=== PATIENT | female | born 1995 | race Caucasian/White ===

== ENCOUNTER → 2019-09-10 11:58 | Outpatient (CLI) | payer OTHER, SELFPAY ==
[2019-09-10 12:21] LABS: Appearance Urine UA CLEAR; Bilirubin Urine UA NEGATIVE (NEGATIVE); Color Urine UA YELLOW; Glucose Urine UA NEGATIVE (Negative); Ketones Urine UA NEGATIVE (NEGATIVE); Leukocyte Esterase Urine UA NEGATIVE (NEGATIVE); Nitrite Urine UA NEGATIVE (Negative); Occult Blood Urine UA NEGATIVE (Negative); Protein Urine UA NEGATIVE (Negative); Urobilinogen Urine UA 0.2 E.U./dL (0.2)
[2019-09-10 12:21] LABS: Add Manual Diff / Slide Review NO; Basophils Absolute Auto 0 /uL (0-100); Basophils Percent Auto 0.5 % (0-2); Eosinophils Absolute Auto 200 /uL (0-450); Hematocrit 42.4 % (36-46); Hemoglobin 14.7 g/dL (12.0-16.0); Lymphocytes Absolute Auto 1800 /uL (1100-4500); Lymphocytes Percent Auto 22.2 % (25-40); Mean Corpuscular HGB Conc 34.7 % (30-36); Mean Corpuscular Hemoglobin 29.8 PG (26-34); Mean Corpuscular Volume 85.7 fL (80-100); Monocytes Absolute Auto 500 /uL (0-900); Monocytes Percent Auto 6.1 % (3-14); Neutrophils Absolute Auto 5500 /uL (1500-7000); Neutrophils Percent Auto 69.2 % (50-75); Platelet Count 293 X10^3/uL (150-400); Red Blood Cell Count 4.94 X10^6/uL (4.0-5.2); Red Cell Distribution Width 12.8 % (11.6-14.8)
[2019-09-10 15:54] LABS: Hepatitis B Surface Antigen NEGATIVE s/c (NEGATIVE); Rubella Antibody IgG 63.6 IU/mL (>15)
[2019-09-10 16:14] LABS: HIV 1 & 2 Ab/Ag 4th Gen Combo NEGATIVE (NEGATIVE); Hep C Virus Ab w/Reflex Quant NEGATIVE s/c (NEGATIVE)
[2019-09-12 20:56] LABS: RPR Screen Nonreactive (Nonreactive)
== END ==
PROVIDERS: Visit Provider Obstetrics & Gynecology
DX: Z34.01 Encounter for supervision of normal first pregnancy, first trimester (principal)
CPT/HCPCS: 36415; 80055; 81003; 86787; 86803; 86850; 86900; 86901; 87086; 87389

== ENCOUNTER → 2019-11-12 09:03 | Outpatient (CLI) | payer OTHER, SELFPAY ==
[2019-11-17 10:08] LABS: AFP, Serum 36.3 ng/mL; Calc Gestational Age 20.1; Est Date Determined by US; Maternal Weight 200 lbs; Mother Ethnic Origin CAUCASIAN; Number of Fetuses 1; Prev Pregnancies Down Syndrome N
== END ==
PROVIDERS: Visit Provider Obstetrics & Gynecology
DX: Z34.92 Encounter for supervision of normal pregnancy, unspecified, second trimester (principal); Z3A.15 15 weeks gestation of pregnancy
CPT/HCPCS: 36415; 82105

== ENCOUNTER → 2019-11-19 07:08 | Outpatient (CLI) | payer OTHER, SELFPAY ==
--- NOTE | 2019-11-19 07:09 | DI.US.S_ITS ---
PROCEDURE: US OB >= 14 WEEKS FETUS INDICATIONS: ANATOMY OUTSIDE/PRIOR DATING DATA: Last menstrual period (LMP): 06/23/19. LMP-based estimated date of delivery (CORAL): 03/28/20. First dating scan (date and location): 11/12/19. Estimated date of delivery (CORAL) from first dating scan: 03/31/20. TECHNIQUE: Real-time scanning was performed of the fetus, with image documentation and biometric measurements. Endovaginal scanning: Not needed for this study COMPARISON: [facility], , OB >= 14 WEEKS FETUS, 11/12/2019, 8:50. FINDINGS: General: A single living intrauterine gestation is present. Presentation: Vertex. Placenta: Placental position is anterior, without previa. Amniotic fluid index: 14.9 cm, normal range is 5-24 cm. heart rate: 139 beats per minute. Maternal cervical canal: 4.5 m long. Normal lower limit is 2.5 cm. biometrics: Biparietal diameter: 5.1 cm, 21 weeks 4 days Head circumference: 18.1 cm, 20 weeks 3 days Abdominal circumference: 16.1 cm, 21 weeks 1 day Femur length: 3.4 cm, 20 weeks 6 days Estimated gestational age from initial scan: 21 weeks 0 days. Composite gestational age from present scan: 21 weeks 0 days Estimated weight and percentile: 391 grams, 44th percentile Measurement variability for biometric dating: +/- 7 days from 14 weeks to 15 weeks 6 days gestation, +/- 10 days from 16 weeks to 21 weeks 6 days gestation, +/- 2 weeks from 22 weeks to 27 weeks 6 days gestation, +/- 3 weeks for 28 weeks gestation or later. weight reference: 4500 g or EFW >90/95% is considered macrosomia or large for gestational age. EFW <10% is small for gestational age. EFW 5% or less is considered intra-uterine growth restriction. Anatomic survey: Neuro: Ventricles are non-dilated at less than 10 mm. Cisterna magna is normal at 3-11 mm. Cerebellum is normal in size and morphology. Nuchal skin fold: Normal at less than 6 mm between 14-21 weeks gestational age. Face: Nose and lips, facial profile are normal. Spine: No evidence for spina bifida. Heart: 4-chambered heart is present, with normal ventricular outflow tracts. Diaphragm: Diaphragm is intact. Stomach: Left-sided stomach is present. Kidneys: No hydronephrosis. Normal is less than 5 mm in 2nd trimester, less than 7 mm in 3rd trimester. Cord: 3-vessel cord has orthotopic insertion. Bladder: Normal in size. Extremities: All 4 extremities identified. IMPRESSION: Appropriate growth, no anatomic abnormality. Dictated by: Armando Llamas M.D. on 11/19/2019 at 11:18 Approved by: Armando Llamas M.D. on 11/20/2019 at 12:13
== END ==
PROVIDERS: PCP Obstetrics & Gynecology; Visit Provider Obstetrics & Gynecology
DX: Z34.82 Encounter for supervision of other normal pregnancy, second trimester (principal); Z3A.20 20 weeks gestation of pregnancy
CPT/HCPCS: 76811

== ENCOUNTER → 2019-12-17 08:20 | Outpatient (CLI) | payer OTHER, SELFPAY ==
[2019-12-17 09:55] LABS: Add Manual Diff / Slide Review NO; Basophils Absolute Auto 0 /uL (0-100); Basophils Percent Auto 0.2 % (0-2); Eosinophils Absolute Auto 100 /uL (0-450); Eosinophils Percent Auto 1.5 % (2-4); Hematocrit 38.9 % (36-46); Hemoglobin 13.5 g/dL (12.0-16.0); Lymphocytes Absolute Auto 1600 /uL (1100-4500); Lymphocytes Percent Auto 15.9 % (25-40); Mean Corpuscular HGB Conc 34.6 % (30-36); Mean Corpuscular Hemoglobin 29.6 PG (26-34); Mean Corpuscular Volume 85.6 fL (80-100); Monocytes Absolute Auto 600 /uL (0-900); Monocytes Percent Auto 5.9 % (3-14); Neutrophils Absolute Auto 7500 /uL (1500-7000); Neutrophils Percent Auto 76.5 % (50-75); Platelet Count 283 X10^3/uL (150-400); Red Blood Cell Count 4.54 X10^6/uL (4.0-5.2); Red Cell Distribution Width 13.4 % (11.6-14.8); White Blood Cell Count 9.8 X10^3/uL (4.5-11.0)
[2019-12-17 10:11] LABS: Aspartate Aminotransferase 22 IU/L (14-36); Blood Urea Nitrogen 7 mg/dL (7-17); Estimated Glomerular Filt Rate > 60.0 mL/min (>60); Uric Acid 3.8 mg/dL (2.5-6.2)
[2019-12-17 10:22] LABS: Protein (Total) Urine Random 15 mg/dL (0-12); Protein Creatinine Ratio Urine 0.21 GRAM/24H
== END ==
PROVIDERS: PCP Obstetrics & Gynecology; Referring Provider Obstetrics & Gynecology; Visit Provider Obstetrics & Gynecology
DX: O13.9 Gestational [pregnancy-induced] hypertension without significant proteinuria, unspecified trimester (principal)
CPT/HCPCS: 36415; 82570; 84156; 84450; 84550; 85025

== ENCOUNTER → 2020-01-01 11:04 | Outpatient (CLI) | payer OTHER, SELFPAY ==
[2020-01-01 12:43] LABS: Hematocrit 37.6 % (36-46); Hemoglobin 13.1 g/dL (12.0-16.0)
[2020-01-01 13:08] LABS: GTT (PREG) 1 Hour PP 50gm Dose 139 mg/dL (76-139)
== END ==
PROVIDERS: PCP Obstetrics & Gynecology; Referring Provider Obstetrics & Gynecology; Visit Provider Obstetrics & Gynecology
DX: Z34.82 Encounter for supervision of other normal pregnancy, second trimester (principal); Z3A.25 25 weeks gestation of pregnancy
CPT/HCPCS: 36415; 82950; 85014; 85018

== ENCOUNTER → 2020-01-07 15:23 | Outpatient (CLI) | payer OTHER, SELFPAY ==
[2020-01-07 17:51] LABS: Aspartate Aminotransferase 25 IU/L (14-36); BUN Creatinine Ratio 12.5 (6-22); Blood Urea Nitrogen 8 mg/dL (7-17); Estimated Glomerular Filt Rate > 60.0 mL/min (>60)
[2020-01-07 18:17] LABS: Creatinine Urine Random 16.9 mg/dL; Protein (Total) Urine Random 13 mg/dL (0-12); Protein Creatinine Ratio Urine 0.76 GRAM/24H
[2020-01-07 18:48] LABS: Add Manual Diff / Slide Review NO; Basophils Absolute Auto 0 /uL (0-100); Basophils Percent Auto 0.3 % (0-2); Eosinophils Absolute Auto 200 /uL (0-450); Eosinophils Percent Auto 1.6 % (2-4); Hematocrit 36.4 % (36-46); Hemoglobin 12.6 g/dL (12.0-16.0); Lymphocytes Absolute Auto 1500 /uL (1100-4500); Lymphocytes Percent Auto 15.7 % (25-40); Mean Corpuscular HGB Conc 34.5 % (30-36); Mean Corpuscular Hemoglobin 29.6 PG (26-34); Mean Corpuscular Volume 85.8 fL (80-100); Monocytes Absolute Auto 500 /uL (0-900); Monocytes Percent Auto 5.5 % (3-14); Neutrophils Absolute Auto 7400 /uL (1500-7000); Neutrophils Percent Auto 76.9 % (50-75); Platelet Count 300 X10^3/uL (150-400); Red Blood Cell Count 4.24 X10^6/uL (4.0-5.2); Red Cell Distribution Width 13.2 % (11.6-14.8); White Blood Cell Count 9.6 X10^3/uL (4.5-11.0)
== END ==
PROVIDERS: PCP Obstetrics & Gynecology; Referring Provider Obstetrics & Gynecology; Visit Provider Obstetrics & Gynecology
DX: O13.9 Gestational [pregnancy-induced] hypertension without significant proteinuria, unspecified trimester (principal)
CPT/HCPCS: 36415; 82570; 84156; 84450; 84550; 85025

== ENCOUNTER 2020-01-08 23:52 | Outpatient (CLI) | payer OTHER, SELFPAY ==
[2020-01-09 00:12] LABS: RBC Urine None Seen (0-5/HPF)
[2020-01-09 00:20] LABS: Appearance Urine UA CLEAR; Bilirubin Urine UA NEGATIVE (NEGATIVE); Glucose Urine UA NEGATIVE (Negative); Ketones Urine UA NEGATIVE (NEGATIVE); Leukocyte Esterase Urine UA TRACE (NEGATIVE); Nitrite Urine UA NEGATIVE (Negative); Occult Blood Urine UA NEGATIVE (Negative); Protein Urine UA NEGATIVE (Negative); Specific Gravity Urine UA <=1.005 (1.000-1.035); Urobilinogen Urine UA 0.2 E.U./dL (0.2)
[2020-01-09 00:21] LABS: Color Urine UA Straw
[2020-01-09 00:33] LABS: Bacteria Urine Few (2-10); Culture Indicated Urine Specimen Cultured; Squamous Epithelial Cell Urine 1-5 /HPF (0-5/HPF); WBC Urine 0-1/HPF (0-5/HPF)
[2020-01-09 00:34] LABS: Creatinine Urine Random 13.6 mg/dL; Protein (Total) Urine Random 15 mg/dL (0-12)
--- NOTE | 2020-01-09 00:58 | PM.OBTRLD ---
Visit Information Visit Information Date of evaluation: 01/09/20 Primary OB Provider: Mily Monsivais On-call OB Provider: Patricia Dejesus Reason for Evaluation: Yes non-stress test non-stress test reason: hypertension/pre-eclampsia Comments/Additional reasons for admission: Patient call the after hours line concerned about elevated blood pressures in the setting of known gestational hypertension. Blood pressure was in the 140s over 80s at home. She stated that she had preeclampsia labs done on 01/07/20 but had not yet heard the results. She was concerned because she felt a bit lightheaded and had some swelling during the day. Denied severe headache or abdominal pain. Also denied contractions, vaginal bleeding or decreased movement. Lab results were reviewed with the patient over the phone showing an elevated microalbumin creatinine ratio however remaining labs were normal. Vital Signs Vital Signs: Temperature 36.4? blood pressure 137/92 heart rate 72, repeat 120/71 heart rate 62 PFSH Medical History Pneumonia (Acute) Surgical History Anesthesia (Resolved) Hx of tonsillectomy (Acute) [place] teeth extracted (Acute) Family History Grandmother Breast cancer Leukemia Depression Diabetes mellitus Social History marital status: household members: spouse pets and animals: Yes (dogs x 2) education level: college (some college) occupational status: employed (Para-Educator) current occupational exposures/hazards: No special [place] needs: No travel history: recent ([email or web address] May 28 2019) Smoking Status: Never smoker second hand exposure: No alcohol intake: former (occasional pre-) substance use type: does not use during the past year weight has: remained stable Type(s) of exercise: walking and other (Hiking ) Objective Labs Labs: Laboratory Results - last 24 hr 01/09/20 01/09/20 00:00 00:00 Urine Color Straw Urine Appearance Clear Urine pH 7.0 Ur Specific [place] <=1.005 Urine Protein Negative Urine Glucose (UA) Negative Urine Ketones Negative Urine Occult Blood Negative Urine Nitrate Negative Urine Bilirubin Negative Urine Urobilinogen 0.2 Ur Leukocyte Esterase Trace H Urine RBC None seen Urine WBC 0-1/hpf Ur Squamous Epith Cells 1-5 /hpf Urine Bacteria Few (2-10) H Ur Culture Indicated? Specimen cultured U Random Total Protein 15 H Urine Creatinine 13.6 Protein/Creatinin Ratio 1.10 Evaluation Evaluation Baseline heart rate: 120 Variability: Moderate (11-25) monitor accelerations: Present monitor decelerations: Absent Category of Tracing: I Laboratory results: Laboratory Tests 01/09/20 01/09/20 00:00 00:00 Urine Color Straw Urine Appearance Clear Urine pH 7.0 Ur Specific [place] <=1.005 Urine Protein Negative Urine Glucose (UA) Negative Urine Ketones Negative Urine Occult Blood Negative Urine Nitrate Negative Urine Bilirubin Negative Urine Urobilinogen 0.2 Ur Leukocyte Esterase Trace H Urine RBC None seen Urine WBC 0-1/hpf Ur Squamous Epith Cells 1-5 /hpf Urine Bacteria Few (2-10) H Ur Culture Indicated? Specimen cultured U Random Total Protein 15 H Urine Creatinine 13.6 Protein/Creatinin Ratio 1.10 Diagnosis, Plan/Disposition Final Diagnosis (1) 28 weeks gestation of : Current Visit: Yes Status: Acute (2) Pre-eclampsia: Current Visit: Yes Status: Acute Plan/Disposition Plan: Patient is a 24-year-old at 28 weeks gestation with known gestational hypertension. Labs done 01/07/20 were significant for an elevated protein creatinine ratio of 0.7, other labs were normal. Patient was asked to come to the center for further evaluation given technically new diagnosis of pre-eclampsia with new symptoms (lightheadedness, edema). In the center initial BP was 137/92 and repeat 120/71. Patient denied HERNANDEZ, vision changes, abdominal pain, leaking of fluid, vaginal bleeding or decreased movement. No edema noted by RN. Urine protein/creatinine was repeated and returned at 1.1. Given reassuring blood pressures and lack of severe symptoms, blood work was not repeated. Patient will follow up with Dr. Monsivais as planned. She was advised to continued checking home blood pressures and counseled on severe range pressures as well as severe symptoms. Return to triage as needed, otherwise follow up in clinic. OB Disposition: home
== END 2020-01-09 01:05 | disposition home or self-care (01) ==
LOC: LABOR 23:54 → OB 01-12 11:50
PROVIDERS: PCP Obstetrics & Gynecology; Referring Provider Family Medicine; Visit Provider Family Medicine
DX: O14.93 Unspecified pre-eclampsia, third trimester (principal); Z3A.28 28 weeks gestation of pregnancy
CPT/HCPCS: 59025; 59050; 81001; 82570; 84156; 87077; 87086; G0378; G0379

== ENCOUNTER 2020-01-10 09:52 | Outpatient (CLI) | payer OTHER, SELFPAY ==
--- NOTE | 2020-01-10 10:11 | DI.US.S_ITS ---
PROCEDURE: US OB BIOPHYSICAL PROFILE INDICATIONS: HTN OUTSIDE/PRIOR DATING DATA: Last menstrual period (LMP): 06/23/19. LMP-based estimated date of delivery (CORAL): 03/28/20. First dating scan (date and location): 11/12/19. Estimated date of delivery (CORAL) from first dating scan: 03/31/20. TECHNIQUE: Real-time scanning was performed of the fetus for biophysical profile, with image documentation. Color and pulse Doppler interrogation was also performed of the umbilical artery near its insertion into the placenta. COMPARISON: [facility], , OB >= 14 WEEKS FETUS, 12/24/2019, 8:15. [facility], OB >= 14 WEEKS FETUS, 11/19/2019, 7:28. [facility], OB >= 14 WEEKS FETUS, 11/12/2019, 8:50. [facility], , OB <= 14 WEEKS FETUS, 09/10/2019, 11:23. FINDINGS: General: A single live intrauterine gestation is present. Presentation: Variable. Placenta: Placental position is right fundal, without previa. Amniotic fluid index: 13.1 cm, normal range is 5-24 cm. heart rate: 131 beats per minute. Maternal cervical canal: 4.5 cm long. Normal lower limit is 2.5 cm. Estimated gestational age from initial scan: 28 weeks 3 days. Biophysical profile: Tone: 2 points. Movement: 2 points. Respiration: 2 points. Largest pocket of fluid: 2 points. Umbilical artery Doppler: 3.7, within normal limits. IMPRESSION: Normal biophysical profile, 8/8 points. Dictated by: Grady Alegre M.D. on 01/10/2020 at 10:22 Approved by: Grady Alegre M.D. on 01/10/2020 at 10:24
--- NOTE | 2020-01-10 12:44 | PM.OBTRLD ---
Visit Information Visit Information Date of evaluation: 01/10/20 Primary OB Provider: Mily Monsivais On-call OB Provider: Linda Chavez Reason for Evaluation: Yes non-stress test non-stress test reason: hypertension/pre-eclampsia Vital Signs Vital Signs: Blood pressure 133/83, pulse of 81, temperature 36.2? [facility] Social History marital status: household members: spouse pets and animals: Yes (dogs x 2) education level: college (some college) occupational status: employed (Para-Educator) current occupational exposures/hazards: No special [place] needs: No travel history: recent ([place] for [employer] May 28 2019) Smoking Status: Never smoker second hand exposure: No alcohol intake: former (occasional pre-) substance use type: does not use during the past year weight has: remained stable Type(s) of exercise: walking and other (Hiking ) Objective Imaging US - abdomen: Radiologist's impression: Biophysical profile 06/05 Evaluation Evaluation Baseline heart rate: 125 Variability: Moderate (11-25) monitor accelerations: Present monitor decelerations: Absent Contraction Frequency (minutes): 0 Category of Tracing: I Diagnosis, Plan/Disposition Final Diagnosis (1) 28 weeks gestation of : Current Visit: Yes Status: Acute (2) Hypertension affecting in third trimester: Current Visit: Yes Status: Acute Plan/Disposition Plan: Patient is being monitored for hypertension in . Biophysical profile and NST are normal. Blood pressure is not significantly elevated from baseline. Follow-up but normal OB appointment. OB Disposition: home
[2020-01-12 18:48] LABS: Protein (Total) Urine Random 13 mg/dL (0-12)
[2020-01-12 18:53] LABS: Collection Time Urine 24 Hours; Total Protein 24 Hour Urine 403 mg/day (42-225); Total Volume Urine 3100 mL
== END 2020-01-10 11:15 | disposition home or self-care (01) ==
LOC: OB 01-12 11:52
PROVIDERS: PCP Obstetrics & Gynecology; Referring Provider Obstetrics & Gynecology; Visit Provider Obstetrics & Gynecology
DX: O14.93 Unspecified pre-eclampsia, third trimester (principal); Z3A.28 28 weeks gestation of pregnancy
CPT/HCPCS: 59025; 76819; 84156; G0378; G0379

== ENCOUNTER → 2020-01-15 10:39 | Outpatient (CLI) | payer OTHER, SELFPAY ==
[2020-01-15 10:58] LABS: Hematocrit 36.8 % (36-46); Hemoglobin 12.6 g/dL (12.0-16.0); Mean Corpuscular HGB Conc 34.2 % (30-36); Mean Corpuscular Hemoglobin 29.4 PG (26-34); Mean Corpuscular Volume 85.9 fL (80-100); Platelet Count 305 X10^3/uL (150-400); Red Blood Cell Count 4.28 X10^6/uL (4.0-5.2); White Blood Cell Count 10.5 X10^3/uL (4.5-11.0)
[2020-01-15 11:08] LABS: Carbon Dioxide 26 mmol/L (22-32)
[2020-01-15 11:15] LABS: Alanine Aminotransferase 13 IU/L (<35); Albumin 3.9 g/dL (3.5-5.0); Albumin Globulin Ratio 1.1 (1.0-2.8); Alkaline Phosphatase 91 U/L (38-126); Aspartate Aminotransferase 24 IU/L (14-36); BUN Creatinine Ratio 13.2 (6-22); Bilirubin Total 0.3 mg/dL (0.2-1.3); Blood Urea Nitrogen 9 mg/dL (7-17); Calcium 9.5 mg/dL (8.4-10.2); Chloride 105 mmol/L (98-107); Estimated Glomerular Filt Rate > 60.0 mL/min (>60); Globulin 3.4 g/dL (1.7-4.1); Glucose 86 mg/dL (70-100); HEMOLYSIS < 15 (0-50); Potassium 4.1 mmol/L (3.4-5.1); Sodium 134 mmol/L (137-145); Total Protein 7.3 g/dL (6.3-8.2); Uric Acid 4.2 mg/dL (2.5-6.2)
== END ==
PROVIDERS: PCP Obstetrics & Gynecology; Referring Provider Obstetrics & Gynecology; Visit Provider Obstetrics & Gynecology
DX: O14.90 Unspecified pre-eclampsia, unspecified trimester (principal)
CPT/HCPCS: 36415; 80053; 84550; 85027

== ENCOUNTER 2020-01-20 09:17 | Outpatient (CLI) | payer OTHER, SELFPAY ==
--- NOTE | 2020-01-20 10:11 | P.TNLD_ITS ---
Visit Information Visit Information Date of evaluation: 01/20/20 Primary OB Provider: Mily Monsivais Reason for Evaluation: Yes non-stress test Comments/Additional reasons for admission: NST for preeclampsia without severe features Vital Signs Vital Signs: 131/86, HR 76, T 36.8C PFSH Medical History Pneumonia (Acute) Surgical History Anesthesia (Resolved) Hx of tonsillectomy (Acute) [place] teeth extracted (Acute) Family History Grandmother Breast cancer Leukemia Depression Diabetes mellitus Social History marital status: household members: spouse pets and animals: Yes (dogs x 2) education level: college occupational status: employed current occupational exposures/hazards: No special [place] needs: No travel history: recent Smoking Status: Never smoker second hand exposure: No alcohol intake: former substance use type: does not use during the past year weight has: remained stable Type(s) of exercise: walking and other Evaluation Evaluation Baseline heart rate: 125 Variability: Moderate (11-25) monitor accelerations: Present monitor decelerations: Absent Category of Tracing: I Diagnosis, Plan/Disposition Plan/Disposition Plan: Home with routine precautions and follow up in 3 days. OB Disposition: home
== END 2020-01-20 10:20 | disposition home or self-care (01) ==
LOC: OB 01-22 08:58
PROVIDERS: Referring Provider Obstetrics & Gynecology; Visit Provider Obstetrics & Gynecology
DX: O14.03 Mild to moderate pre-eclampsia, third trimester (principal); Z3A.30 30 weeks gestation of pregnancy
CPT/HCPCS: 59025; G0378; G0379

== ENCOUNTER 2020-01-23 08:52 | Outpatient (CLI) | payer OTHER, SELFPAY ==
[2020-01-23 09:35] LABS: Add Manual Diff / Slide Review NO; Basophils Absolute Auto 100 /uL (0-100); Basophils Percent Auto 0.6 % (0-2); Eosinophils Absolute Auto 200 /uL (0-450); Hematocrit 35.7 % (36-46); Hemoglobin 12.3 g/dL (12.0-16.0); Lymphocytes Absolute Auto 1300 /uL (1100-4500); Lymphocytes Percent Auto 12.9 % (25-40); Mean Corpuscular HGB Conc 34.4 % (30-36); Mean Corpuscular Hemoglobin 29.2 PG (26-34); Mean Corpuscular Volume 84.9 fL (80-100); Monocytes Absolute Auto 600 /uL (0-900); Monocytes Percent Auto 5.8 % (3-14); Neutrophils Absolute Auto 7700 /uL (1500-7000); Neutrophils Percent Auto 78.7 % (50-75); Platelet Count 271 X10^3/uL (150-400); Red Cell Distribution Width 13.1 % (11.6-14.8); White Blood Cell Count 9.8 X10^3/uL (4.5-11.0)
[2020-01-23 09:51] LABS: Aspartate Aminotransferase 20 IU/L (14-36); BUN Creatinine Ratio 10.5 (6-22); Blood Urea Nitrogen 6 mg/dL (7-17); Estimated Glomerular Filt Rate > 60.0 mL/min (>60); Uric Acid 4.4 mg/dL (2.5-6.2)
--- NOTE | 2020-01-23 11:54 | PM.OBTRLD ---
Visit Information Visit Information Date of evaluation: 01/23/20 Primary OB Provider: Mily Monsivais Reason for Evaluation: Yes non-stress test Comments/Additional reasons for admission: This patient is a 24yo @30+5 with preeclampsia without severe features, presenting for scheduled NST/BPP. The patient reports feeling well with normal BPs on monitoring at home (120s-130s systolic,) -VB, -LOF, -ctx, no HERNANDEZ, no visual changes, no swelling, and no other complaints obstetrical or otherwise. [facility] Medical History Pneumonia (Acute) Surgical History Anesthesia (Resolved) Hx of tonsillectomy (Acute) [place] teeth extracted (Acute) Family History Grandmother Breast cancer Leukemia Depression Diabetes mellitus Social History marital status: household members: spouse pets and animals: Yes (dogs x 2) education level: college occupational status: employed current occupational exposures/hazards: No special [place] needs: No travel history: recent Smoking Status: Never smoker second hand exposure: No alcohol intake: former substance use type: does not use during the past year weight has: remained stable Type(s) of exercise: walking and other Review of Systems Constitutional Constitutional: Reports system reviewed and no additional complaints, except as documented Cardiovascular Cardiovascular: Reports system reviewed; no additional complaints, except as documented Respiratory Respiratory: Reports system reviewed and no additional complaints, except as documented Gastrointestinal Gastrointestinal: Reports system reviewed and no additional complaints, except as documented Genitourinary Genitourinary: Reports system reviewed and no additional complaints, except as documented Exam Vital Signs (past 8 hours): 115/67, HR 74, T 37.2C GI Palpation: soft and No tender Objective Labs Result Diagrams: 01/23/20 09:22 01/23/20 09:22 Labs: Laboratory Results - last 24 hr 01/23/20 01/23/20 09:22 09:22 WBC 9.8 RBC 4.20 Hgb 12.3 Hct 35.7 L MCV 84.9 MCH 29.2 MCHC 34.4 RDW 13.1 Plt Count 271 Neut % (Auto) 78.7 H Lymph % (Auto) 12.9 L [place] % (Auto) 5.8 Eos % (Auto) 2.0 Baso % (Auto) 0.6 Neut # (Auto) 7700 H Lymph # (Auto) 1300 [place] # (Auto) 600 Eos # (Auto) 200 Baso # (Auto) 100 BUN 6 L Creatinine 0.57 Estimated GFR > 60.0 BUN/Creatinine Ratio 10.5 Uric Acid 4.4 AST 20 Evaluation Evaluation Baseline heart rate: 120 Variability: Moderate (11-25) monitor accelerations: Present Uterine Contraction Intensity: Mild Category of Tracing: I Laboratory results: Laboratory Tests 01/23/20 01/23/20 09:22 09:22 WBC 9.8 RBC 4.20 Hgb 12.3 Hct 35.7 L MCV 84.9 MCH 29.2 MCHC 34.4 RDW 13.1 Plt Count 271 Neut % (Auto) 78.7 H Lymph % (Auto) 12.9 L [place] % (Auto) 5.8 Eos % (Auto) 2.0 Baso % (Auto) 0.6 Neut # (Auto) 7700 H Lymph # (Auto) 1300 [place] # (Auto) 600 Eos # (Auto) 200 Baso # (Auto) 100 BUN 6 L Creatinine 0.57 Estimated GFR > 60.0 BUN/Creatinine Ratio 10.5 Uric Acid 4.4 AST 20 Comments: BPP 10/10, SERGIO 10.1, cephalic presentation Diagnosis, Plan/Disposition Plan/Disposition Plan: reassuring and maternal status, stable labs. patient scheduled to see MFM on Sunday. Antepartum precautions discussed. OB Disposition: home
== END 2020-01-23 10:23 | disposition home or self-care (01) ==
LOC: LABOR 09:44 → OB 01-26 11:29
PROVIDERS: Referring Provider Obstetrics & Gynecology; Visit Provider Obstetrics & Gynecology
DX: O14.03 Mild to moderate pre-eclampsia, third trimester (principal); Z3A.30 30 weeks gestation of pregnancy
CPT/HCPCS: 59025; 84450; 84550; 85025; G0378; G0379

== ENCOUNTER 2020-01-30 12:07 | Outpatient (CLI) | payer OTHER, SELFPAY ==
[2020-01-30 12:56] LABS: Add Manual Diff / Slide Review NO; Basophils Absolute Auto 0 /uL (0-100); Basophils Percent Auto 0.2 % (0-2); Eosinophils Absolute Auto 200 /uL (0-450); Eosinophils Percent Auto 1.6 % (2-4); Hematocrit 36.4 % (36-46); Hemoglobin 12.5 g/dL (12.0-16.0); Lymphocytes Absolute Auto 1500 /uL (1100-4500); Lymphocytes Percent Auto 12.5 % (25-40); Mean Corpuscular HGB Conc 34.2 % (30-36); Mean Corpuscular Hemoglobin 29.2 PG (26-34); Mean Corpuscular Volume 85.2 fL (80-100); Monocytes Absolute Auto 600 /uL (0-900); Monocytes Percent Auto 5.1 % (3-14); Neutrophils Absolute Auto 9600 /uL (1500-7000); Neutrophils Percent Auto 80.6 % (50-75); Platelet Count 268 X10^3/uL (150-400); Red Blood Cell Count 4.27 X10^6/uL (4.0-5.2); White Blood Cell Count 11.9 X10^3/uL (4.5-11.0)
[2020-01-30 13:09] LABS: Alanine Aminotransferase 12 IU/L (<35); Albumin 3.7 g/dL (3.5-5.0); Albumin Globulin Ratio 1.1 (1.0-2.8); Alkaline Phosphatase 108 U/L (38-126); Aspartate Aminotransferase 20 IU/L (14-36); BUN Creatinine Ratio 11.5 (6-22); Bilirubin Total 0.3 mg/dL (0.2-1.3); Bilirubin Unconjugated 0.3 mg/dL (0.0-1.1); Blood Urea Nitrogen 7 mg/dL (7-17); Carbon Dioxide 22 mmol/L (22-32); Chloride 106 mmol/L (98-107); Estimated Glomerular Filt Rate > 60.0 mL/min (>60); Globulin 3.3 g/dL (1.7-4.1); Glucose 74 mg/dL (70-100); HEMOLYSIS < 15 (0-50); Sodium 135 mmol/L (137-145); Uric Acid 4.2 mg/dL (2.5-6.2)
--- NOTE | 2020-01-30 13:26 | PM.OBTRLD ---
Visit Information Visit Information Date of evaluation: 01/30/20 Primary OB Provider: Mily Monsivais Reason for Evaluation: Yes non-stress test Comments/Additional reasons for admission: This patient presents at 31+5 for routine testing for preeclampsia without severe features, with no PIH complaints. Vital Signs Vital Signs: 129/72, HR 69 PFSH Medical History Pneumonia (Acute) Surgical History Anesthesia (Resolved) Hx of tonsillectomy (Acute) [place] teeth extracted (Acute) Family History Grandmother Breast cancer Leukemia Depression Diabetes mellitus Social History marital status: household members: spouse pets and animals: Yes (dogs x 2) education level: college occupational status: employed current occupational exposures/hazards: No special [place] needs: No travel history: recent Smoking Status: Never smoker second hand exposure: No alcohol intake: former substance use type: does not use during the past year weight has: remained stable Type(s) of exercise: walking and other Review of Systems Review of Systems ROS: Yes All systems reviewed with the patient and are negative except as otherwise documented Objective Labs Result Diagrams: 01/30/20 12:48 01/30/20 12:48 Labs: Laboratory Results - last 24 hr 01/30/20 01/30/20 12:48 12:48 WBC 11.9 H RBC 4.27 Hgb 12.5 Hct 36.4 MCV 85.2 MCH 29.2 MCHC 34.2 RDW 13.0 Plt Count 268 Neut % (Auto) 80.6 H Lymph % (Auto) 12.5 L [place] % (Auto) 5.1 Eos % (Auto) 1.6 L Baso % (Auto) 0.2 Neut # (Auto) 9600 H Lymph # (Auto) 1500 [place] # (Auto) 600 Eos # (Auto) 200 Baso # (Auto) 0 Sodium 135 L Potassium 4.0 Chloride 106 Carbon Dioxide 22 BUN 7 Creatinine 0.61 Estimated GFR > 60.0 BUN/Creatinine Ratio 11.5 Glucose 74 Uric Acid 4.2 Calcium 10.0 Total Bilirubin 0.3 Conjugated Bilirubin 0.0 Unconjugated Bilirubin 0.3 AST 20 ALT 12 Alkaline Phosphatase 108 Total Protein 7.0 Albumin 3.7 Globulin 3.3 Albumin/Globulin Ratio 1.1 Evaluation Evaluation Baseline heart rate: 125 Variability: Average (6-10) monitor accelerations: Present monitor decelerations: Absent Category of Tracing: I Laboratory results: Laboratory Tests 01/30/20 01/30/20 12:48 12:48 WBC 11.9 H RBC 4.27 Hgb 12.5 Hct 36.4 MCV 85.2 MCH 29.2 MCHC 34.2 RDW 13.0 Plt Count 268 Neut % (Auto) 80.6 H Lymph % (Auto) 12.5 L [place] % (Auto) 5.1 Eos % (Auto) 1.6 L Baso % (Auto) 0.2 Neut # (Auto) 9600 H Lymph # (Auto) 1500 [place] # (Auto) 600 Eos # (Auto) 200 Baso # (Auto) 0 Sodium 135 L Potassium 4.0 Chloride 106 Carbon Dioxide 22 BUN 7 Creatinine 0.61 Estimated GFR > 60.0 BUN/Creatinine Ratio 11.5 Glucose 74 Uric Acid 4.2 Calcium 10.0 Total Bilirubin 0.3 Conjugated Bilirubin 0.0 Unconjugated Bilirubin 0.3 AST 20 ALT 12 Alkaline Phosphatase 108 Total Protein 7.0 Albumin 3.7 Globulin 3.3 Albumin/Globulin Ratio 1.1 Diagnosis, Plan/Disposition Plan/Disposition Plan: Home with routine follow up. OB Disposition: home
== END 2020-01-30 13:35 | disposition home or self-care (01) ==
LOC: LABOR 12:54 → OB 02-02 10:55
PROVIDERS: Referring Provider Obstetrics & Gynecology; Visit Provider Obstetrics & Gynecology
DX: O14.03 Mild to moderate pre-eclampsia, third trimester (principal); Z3A.31 31 weeks gestation of pregnancy
CPT/HCPCS: 36415; 59025; 59050; 80053; 80076; 84550; 85025; G0378; G0379

== ENCOUNTER 2020-02-03 11:05 | Outpatient (CLI) | payer OTHER, SELFPAY | END 2020-02-03 12:00 | disposition home or self-care (01) | LOC: LABOR 11:15 → OB 02-04 08:57 | PROVIDERS: Referring Provider Obstetrics & Gynecology; Visit Provider Obstetrics & Gynecology | DX: O14.93 Unspecified pre-eclampsia, third trimester (principal); Z3A.32 32 weeks gestation of pregnancy | CPT/HCPCS: 59025; G0378; G0379 ==

== ENCOUNTER 2020-02-06 09:35 | Outpatient (CLI) | payer OTHER, SELFPAY ==
--- NOTE | 2020-02-06 11:03 | PM.OBTRLD ---
Visit Information Visit Information Date of evaluation: 02/06/20 Primary OB Provider: Mily Monsivais Reason for Evaluation: Yes non-stress test Comments/Additional reasons for admission: Scheduled NST for preeclampsia without severe features Vital Signs Vital Signs: 134/68 PFSH Medical History Pneumonia (Acute) Surgical History Anesthesia (Resolved) Hx of tonsillectomy (Acute) [place] teeth extracted (Acute) Family History Grandmother Breast cancer Leukemia Depression Diabetes mellitus Social History marital status: household members: spouse pets and animals: Yes (dogs x 2) education level: college occupational status: employed current occupational exposures/hazards: No special [place] needs: No travel history: recent Smoking Status: Never smoker second hand exposure: No alcohol intake: former substance use type: does not use during the past year weight has: remained stable Type(s) of exercise: walking and other Review of Systems Constitutional Constitutional: Reports system reviewed and no additional complaints, except as documented Evaluation Evaluation Baseline heart rate: 130 Variability: Average (6-10) monitor accelerations: Present monitor decelerations: Absent Category of Tracing: I Diagnosis, Plan/Disposition Plan/Disposition Plan: PEC labs drawn as planned, routine precautions and discharge home. OB Disposition: home
[2020-02-06 11:12] LABS: Add Manual Diff / Slide Review NO; Basophils Absolute Auto 100 /uL (0-100); Basophils Percent Auto 0.4 % (0-2); Eosinophils Absolute Auto 200 /uL (0-450); Eosinophils Percent Auto 1.7 % (2-4); Hematocrit 33.9 % (36-46); Hemoglobin 11.6 g/dL (12.0-16.0); Lymphocytes Absolute Auto 1400 /uL (1100-4500); Lymphocytes Percent Auto 12.1 % (25-40); Mean Corpuscular HGB Conc 34.2 % (30-36); Mean Corpuscular Hemoglobin 29.2 PG (26-34); Mean Corpuscular Volume 85.5 fL (80-100); Monocytes Absolute Auto 700 /uL (0-900); Monocytes Percent Auto 5.6 % (3-14); Neutrophils Absolute Auto 9400 /uL (1500-7000); Neutrophils Percent Auto 80.2 % (50-75); Platelet Count 267 X10^3/uL (150-400); Red Blood Cell Count 3.96 X10^6/uL (4.0-5.2); White Blood Cell Count 11.7 X10^3/uL (4.5-11.0)
[2020-02-06 11:38] LABS: Aspartate Aminotransferase 20 IU/L (14-36); BUN Creatinine Ratio 12.3 (6-22); Blood Urea Nitrogen 8 mg/dL (7-17); Estimated Glomerular Filt Rate > 60.0 mL/min (>60); Uric Acid 4.7 mg/dL (2.5-6.2)
== END 2020-02-06 11:15 | disposition home or self-care (01) ==
LOC: LABOR 10:11 → OB 02-09 11:09
PROVIDERS: Referring Provider Obstetrics & Gynecology; Visit Provider Obstetrics & Gynecology
DX: O14.03 Mild to moderate pre-eclampsia, third trimester (principal); Z3A.32 32 weeks gestation of pregnancy
CPT/HCPCS: 36415; 59025; 59050; 84450; 84550; 85025; G0378; G0379

== ENCOUNTER 2020-02-10 08:58 | Outpatient (CLI) | payer OTHER, SELFPAY | END 2020-02-10 09:50 | disposition home or self-care (01) | LOC: OB 02-11 10:58 | PROVIDERS: Referring Provider Obstetrics & Gynecology; Visit Provider Obstetrics & Gynecology | DX: O13.3 Gestational [pregnancy-induced] hypertension without significant proteinuria, third trimester (principal); Z3A.33 33 weeks gestation of pregnancy | CPT/HCPCS: 59025; G0378; G0379 ==

== ENCOUNTER 2020-02-13 10:53 | Outpatient (CLI) | payer OTHER, SELFPAY ==
--- NOTE | 2020-02-13 11:21 | PM.OBTRLD ---
Visit Information Visit Information Date of evaluation: 02/13/20 Primary OB Provider: Mily Monsivais Reason for Evaluation: Yes non-stress test Comments/Additional reasons for admission: @33+5 presenting for NST for scheduled testing for preeclampsia without severe features, just s/p 8/8 BPP in office. Vital Signs Vital Signs: 135/92, pulse 77 PFSH Medical History Pneumonia (Acute) Surgical History Anesthesia (Resolved) Hx of tonsillectomy (Acute) [place] teeth extracted (Acute) Family History Grandmother Breast cancer Leukemia Depression Diabetes mellitus Social History marital status: household members: spouse pets and animals: Yes (dogs x 2) education level: college occupational status: employed current occupational exposures/hazards: No special [place] needs: No travel history: recent Smoking Status: Never smoker second hand exposure: No alcohol intake: former substance use type: does not use during the past year weight has: remained stable Type(s) of exercise: walking and other Evaluation Evaluation Baseline heart rate: 130 Variability: Moderate (11-25) monitor accelerations: Present monitor decelerations: Absent Category of Tracing: I Diagnosis, Plan/Disposition Plan/Disposition Plan: Home with scheduled follow up and routine precautions. OB Disposition: home
[2020-02-13 12:06] LABS: Add Manual Diff / Slide Review NO; Basophils Absolute Auto 100 /uL (0-100); Basophils Percent Auto 0.5 % (0-2); Eosinophils Absolute Auto 200 /uL (0-450); Eosinophils Percent Auto 1.6 % (2-4); Hematocrit 35.2 % (36-46); Hemoglobin 11.9 g/dL (12.0-16.0); Lymphocytes Absolute Auto 1700 /uL (1100-4500); Lymphocytes Percent Auto 14.1 % (25-40); Mean Corpuscular HGB Conc 33.8 % (30-36); Mean Corpuscular Hemoglobin 28.6 PG (26-34); Mean Corpuscular Volume 84.7 fL (80-100); Monocytes Absolute Auto 900 /uL (0-900); Monocytes Percent Auto 7.6 % (3-14); Neutrophils Absolute Auto 9200 /uL (1500-7000); Neutrophils Percent Auto 76.2 % (50-75); Platelet Count 297 X10^3/uL (150-400); Red Blood Cell Count 4.16 X10^6/uL (4.0-5.2); Red Cell Distribution Width 13.1 % (11.6-14.8); White Blood Cell Count 12.1 X10^3/uL (4.5-11.0)
[2020-02-13 12:16] LABS: Aspartate Aminotransferase 23 IU/L (14-36); BUN Creatinine Ratio 13.3 (6-22); Blood Urea Nitrogen 8 mg/dL (7-17); Estimated Glomerular Filt Rate > 60.0 mL/min (>60); Uric Acid 4.5 mg/dL (2.5-6.2)
== END 2020-02-13 11:55 | disposition home or self-care (01) ==
LOC: LABOR 11:21 → OB 02-16 16:01
PROVIDERS: Referring Provider Obstetrics & Gynecology; Visit Provider Obstetrics & Gynecology
DX: O14.03 Mild to moderate pre-eclampsia, third trimester (principal); Z3A.33 33 weeks gestation of pregnancy
CPT/HCPCS: 59025; 84450; 84550; 85025; G0378; G0379

== ENCOUNTER 2020-02-17 09:00 | Outpatient (CLI) | payer OTHER, SELFPAY ==
--- NOTE | 2020-02-17 10:06 | PM.OBTRLD ---
Visit Information Visit Information Date of evaluation: 02/17/20 Primary OB Provider: Mily Monsivais On-call OB Provider: Linda Chavez Reason for Evaluation: Yes non-stress test non-stress test reason: hypertension/pre-eclampsia Vital Signs Vital Signs: Blood pressure 126/57, pulse 74, temperature 98? [facility] Social History marital status: household members: spouse pets and animals: Yes (dogs x 2) education level: college occupational status: employed current occupational exposures/hazards: No special [place] needs: No travel history: recent Smoking Status: Never smoker second hand exposure: No alcohol intake: former substance use type: does not use during the past year weight has: remained stable Type(s) of exercise: walking and other Evaluation Evaluation Baseline heart rate: 120 Variability: Moderate (11-25) monitor accelerations: Present monitor decelerations: Absent Contraction Frequency (minutes): 0 Category of Tracing: I Diagnosis, Plan/Disposition Final Diagnosis (1) Hypertension affecting in third trimester: Current Visit: No Status: Acute (2) 34 weeks gestation of : Current Visit: No Status: Acute Plan/Disposition Plan: Patient with reactive nonstress test being followed for gestational hypertension. Continue routine OB care OB Disposition: home
== END 2020-02-17 10:04 | disposition home or self-care (01) ==
LOC: OB 12:40
PROVIDERS: Referring Provider Obstetrics & Gynecology; Visit Provider Obstetrics & Gynecology
DX: O13.3 Gestational [pregnancy-induced] hypertension without significant proteinuria, third trimester (principal); Z3A.34 34 weeks gestation of pregnancy
CPT/HCPCS: 59025; G0378; G0379

== ENCOUNTER 2020-02-20 09:13 | Outpatient (CLI) | payer OTHER, SELFPAY ==
[2020-02-20 10:46] LABS: Add Manual Diff / Slide Review NO; Basophils Absolute Auto 0 /uL (0-100); Basophils Percent Auto 0.2 % (0-2); Eosinophils Absolute Auto 100 /uL (0-450); Eosinophils Percent Auto 1.2 % (2-4); Hematocrit 34.1 % (36-46); Hemoglobin 11.8 g/dL (12.0-16.0); Lymphocytes Absolute Auto 1600 /uL (1100-4500); Lymphocytes Percent Auto 15.1 % (25-40); Mean Corpuscular HGB Conc 34.5 % (30-36); Mean Corpuscular Hemoglobin 29.3 PG (26-34); Mean Corpuscular Volume 84.9 fL (80-100); Monocytes Absolute Auto 700 /uL (0-900); Monocytes Percent Auto 6.7 % (3-14); Neutrophils Absolute Auto 8200 /uL (1500-7000); Neutrophils Percent Auto 76.8 % (50-75); Platelet Count 269 X10^3/uL (150-400); Red Blood Cell Count 4.02 X10^6/uL (4.0-5.2); Red Cell Distribution Width 13.3 % (11.6-14.8); White Blood Cell Count 10.7 X10^3/uL (4.5-11.0)
[2020-02-20 10:54] LABS: Aspartate Aminotransferase 20 IU/L (14-36); BUN Creatinine Ratio 9.8 (6-22); Blood Urea Nitrogen 6 mg/dL (7-17); Estimated Glomerular Filt Rate > 60.0 mL/min (>60); Uric Acid 4.5 mg/dL (2.5-6.2)
--- NOTE | 2020-02-20 11:51 | PM.OBTRLD ---
Visit Information Visit Information Date of evaluation: 02/20/20 Primary OB Provider: Mily Monsivais Reason for Evaluation: Yes non-stress test Comments/Additional reasons for admission: Patient is a 25yo P0 @34 weeks with preeclampsia without severe features, sent for scheduled NST after in office BPP. [facility] Medical History Pneumonia (Acute) Surgical History Anesthesia (Resolved) Hx of tonsillectomy (Acute) [place] teeth extracted (Acute) Family History Grandmother Breast cancer Leukemia Depression Diabetes mellitus Social History marital status: household members: spouse pets and animals: Yes (dogs x 2) education level: college occupational status: employed current occupational exposures/hazards: No special [place] needs: No travel history: recent Smoking Status: Never smoker second hand exposure: No alcohol intake: former substance use type: does not use during the past year weight has: remained stable Type(s) of exercise: walking and other Review of Systems Constitutional Constitutional: Reports system reviewed and no additional complaints, except as documented Objective Labs Result Diagrams: 02/20/20 09:36 02/20/20 09:36 Labs: Laboratory Results - last 24 hr 02/20/20 02/20/20 09:36 09:36 WBC 10.7 RBC 4.02 Hgb 11.8 L Hct 34.1 L MCV 84.9 MCH 29.3 MCHC 34.5 RDW 13.3 Plt Count 269 Neut % (Auto) 76.8 H Lymph % (Auto) 15.1 L [place] % (Auto) 6.7 Eos % (Auto) 1.2 L Baso % (Auto) 0.2 Neut # (Auto) 8200 H Lymph # (Auto) 1600 [place] # (Auto) 700 Eos # (Auto) 100 Baso # (Auto) 0 BUN 6 L Creatinine 0.61 Estimated GFR > 60.0 BUN/Creatinine Ratio 9.8 Uric Acid 4.5 AST 20 Evaluation Evaluation Baseline heart rate: 120 Variability: Moderate (11-25) monitor accelerations: Present monitor decelerations: Absent Category of Tracing: I Laboratory results: Laboratory Tests 02/20/20 02/20/20 09:36 09:36 WBC 10.7 RBC 4.02 Hgb 11.8 L Hct 34.1 L MCV 84.9 MCH 29.3 MCHC 34.5 RDW 13.3 Plt Count 269 Neut % (Auto) 76.8 H Lymph % (Auto) 15.1 L [place] % (Auto) 6.7 Eos % (Auto) 1.2 L Baso % (Auto) 0.2 Neut # (Auto) 8200 H Lymph # (Auto) 1600 [place] # (Auto) 700 Eos # (Auto) 100 Baso # (Auto) 0 BUN 6 L Creatinine 0.61 Estimated GFR > 60.0 BUN/Creatinine Ratio 9.8 Uric Acid 4.5 AST 20 Diagnosis, Plan/Disposition Plan/Disposition Plan: Home with scheduled follow up Sunday and antepartum precautions. PEC labs WNL and stable. OB Disposition: home
== END 2020-02-20 10:40 | disposition home or self-care (01) ==
LOC: LABOR 09:21 → OB 02-23 12:50
PROVIDERS: Obstetrics & Gynecology; Referring Provider Specialist; Visit Provider Specialist
DX: O14.03 Mild to moderate pre-eclampsia, third trimester (principal); Z3A.34 34 weeks gestation of pregnancy
CPT/HCPCS: 36415; 59025; 84450; 84550; 85025; G0378; G0379

== ENCOUNTER 2020-02-24 08:55 | Outpatient (CLI) | payer OTHER, SELFPAY ==
--- NOTE | 2020-02-26 09:55 | P.TNLD_ITS ---
Visit Information Visit Information Date of evaluation: 02/24/20 Primary OB Provider: Mily Monsivais Reason for Evaluation: Yes non-stress test Comments/Additional reasons for admission: This patient is a 25yo P0 with p reeclampsia without severe features at 35 weeks gestation, presenting for scheduled NST. Vital Signs Vital Signs: 138/91, HR 73 PFSH Social History marital status: household members: spouse pets and animals: Yes (dogs x 2) education level: college occupational status: employed current occupational exposures/hazards: No special [place] needs: No travel history: recent Smoking Status: Never smoker second hand exposure: No alcohol intake: former substance use type: does not use during the past year weight has: remained stable Type(s) of exercise: walking and other Evaluation Evaluation Baseline heart rate: 130 Variability: Moderate (11-25) monitor accelerations: Present monitor decelerations: Absent Category of Tracing: I Diagnosis, Plan/Disposition Plan/Disposition Plan: Home with routine precautions and scheduled follow up. OB Disposition: home
== END 2020-02-24 09:37 | disposition home or self-care (01) ==
LOC: LABOR 09:27 → OB 02-25 12:09
PROVIDERS: Referring Provider Obstetrics & Gynecology; Visit Provider Obstetrics & Gynecology
DX: O14.93 Unspecified pre-eclampsia, third trimester (principal); Z3A.35 35 weeks gestation of pregnancy
CPT/HCPCS: 59025; G0378; G0379

== ENCOUNTER → 2020-02-27 08:01 | Outpatient (CLI) | payer OTHER, SELFPAY ==
[2020-02-28 08:28] LABS: Strep Grp B PCR NEG for Grp B Strep
== END ==
PROVIDERS: Visit Provider Obstetrics & Gynecology
DX: Z34.03 Encounter for supervision of normal first pregnancy, third trimester (principal); Z3A.35 35 weeks gestation of pregnancy
CPT/HCPCS: 87653

== ENCOUNTER 2020-02-27 08:34 | Outpatient (CLI) | payer OTHER, SELFPAY ==
[2020-02-27 09:34] LABS: Add Manual Diff / Slide Review NO; Basophils Absolute Auto 0 /uL (0-100); Basophils Percent Auto 0.2 % (0-2); Eosinophils Absolute Auto 100 /uL (0-450); Eosinophils Percent Auto 1.6 % (2-4); Hematocrit 32.7 % (36-46); Hemoglobin 11.1 g/dL (12.0-16.0); Lymphocytes Absolute Auto 1400 /uL (1100-4500); Lymphocytes Percent Auto 14.7 % (25-40); Mean Corpuscular HGB Conc 33.9 % (30-36); Mean Corpuscular Hemoglobin 28.8 PG (26-34); Mean Corpuscular Volume 84.9 fL (80-100); Monocytes Absolute Auto 700 /uL (0-900); Neutrophils Absolute Auto 7200 /uL (1500-7000); Neutrophils Percent Auto 76.5 % (50-75); Platelet Count 232 X10^3/uL (150-400); Red Blood Cell Count 3.85 X10^6/uL (4.0-5.2); Red Cell Distribution Width 13.1 % (11.6-14.8); White Blood Cell Count 9.4 X10^3/uL (4.5-11.0)
--- NOTE | 2020-02-27 09:36 | PM.OBTRLD ---
Visit Information Visit Information Date of evaluation: 02/27/20 Primary OB Provider: Mily Monsivais Reason for Evaluation: Yes non-stress test Comments/Additional reasons for admission: This patient is a 25yo P0 @35+5 with preeclampsia without severe features, presenting for scheduled NST. [facility] Medical History Pneumonia (Acute) Surgical History Anesthesia (Resolved) Hx of tonsillectomy (Acute) [place] teeth extracted (Acute) Family History Grandmother Breast cancer Leukemia Depression Diabetes mellitus Social History marital status: household members: spouse pets and animals: Yes (dogs x 2) education level: college occupational status: employed current occupational exposures/hazards: No special [place] needs: No travel history: recent Smoking Status: Never smoker second hand exposure: No alcohol intake: former substance use type: does not use during the past year weight has: remained stable Type(s) of exercise: walking and other Exam Vital Signs (past 8 hours): 124/61, HR 82 Objective Labs Result Diagrams: 02/27/20 09:10 02/27/20 09:10 Evaluation Evaluation Baseline heart rate: 130 Variability: Moderate (11-25) monitor accelerations: Present monitor decelerations: Absent Category of Tracing: I Diagnosis, Plan/Disposition Plan/Disposition Plan: Home with scheduled follow up. OB Disposition: home
[2020-02-27 09:54] LABS: Aspartate Aminotransferase 20 IU/L (14-36); BUN Creatinine Ratio 12.5 (6-22); Blood Urea Nitrogen 8 mg/dL (7-17); Estimated Glomerular Filt Rate > 60.0 mL/min (>60); Uric Acid 4.9 mg/dL (2.5-6.2)
== END 2020-02-27 09:45 | disposition home or self-care (01) ==
LOC: OB 03-01 14:23
PROVIDERS: Referring Provider Obstetrics & Gynecology; Visit Provider Obstetrics & Gynecology
DX: O14.03 Mild to moderate pre-eclampsia, third trimester (principal); Z3A.35 35 weeks gestation of pregnancy
CPT/HCPCS: 36415; 59025; 84450; 84550; 85025; 87653; G0378; G0379

== ENCOUNTER 2020-03-02 08:47 | Outpatient (CLI) | payer OTHER, SELFPAY ==
--- NOTE | 2020-03-02 11:28 | PM.OBTRLD ---
Visit Information Visit Information Date of evaluation: 03/02/20 Primary OB Provider: Mily Monsivais Reason for Evaluation: Yes non-stress test Comments/Additional reasons for admission: This patient is a @36 weeks with preeclampsia without severe features, presenting for scheduled NST with no complaints. Vital Signs Vital Signs: 126/69, HR 72, T 36.8C PFS Medical History Pneumonia (Acute) Surgical History Anesthesia (Resolved) Hx of tonsillectomy (Acute) [place] teeth extracted (Acute) Family History Grandmother Breast cancer Leukemia Depression Diabetes mellitus Social History marital status: household members: spouse pets and animals: Yes (dogs x 2) education level: college occupational status: employed current occupational exposures/hazards: No special [place] needs: No travel history: recent Smoking Status: Never smoker second hand exposure: No alcohol intake: former substance use type: does not use during the past year weight has: remained stable Type(s) of exercise: walking and other Evaluation Evaluation Baseline heart rate: 120 Variability: Average (6-10) monitor accelerations: Present monitor decelerations: Absent Category of Tracing: I Diagnosis, Plan/Disposition Plan/Disposition Plan: home with scheduled follow up. OB Disposition: home
== END 2020-03-02 09:36 | disposition home or self-care (01) ==
LOC: LABOR 09:30 → OB 03-03 09:22
PROVIDERS: Referring Provider Obstetrics & Gynecology; Visit Provider Obstetrics & Gynecology
DX: O14.03 Mild to moderate pre-eclampsia, third trimester (principal); Z3A.36 36 weeks gestation of pregnancy
CPT/HCPCS: 59025; G0378; G0379

== ENCOUNTER 2020-03-05 09:03 | Outpatient (CLI) | payer OTHER, SELFPAY ==
[2020-03-05 09:47] LABS: Add Manual Diff / Slide Review NO; Basophils Absolute Auto 0 /uL (0-100); Basophils Percent Auto 0.3 % (0-2); Eosinophils Absolute Auto 200 /uL (0-450); Eosinophils Percent Auto 1.6 % (2-4); Hematocrit 34.4 % (36-46); Hemoglobin 11.9 g/dL (12.0-16.0); Lymphocytes Absolute Auto 1500 /uL (1100-4500); Lymphocytes Percent Auto 15.8 % (25-40); Mean Corpuscular HGB Conc 34.6 % (30-36); Mean Corpuscular Hemoglobin 29.1 PG (26-34); Monocytes Absolute Auto 600 /uL (0-900); Monocytes Percent Auto 6.4 % (3-14); Neutrophils Absolute Auto 7100 /uL (1500-7000); Neutrophils Percent Auto 75.9 % (50-75); Platelet Count 244 X10^3/uL (150-400); Red Cell Distribution Width 13.3 % (11.6-14.8); White Blood Cell Count 9.4 X10^3/uL (4.5-11.0)
[2020-03-05 10:00] LABS: Aspartate Aminotransferase 20 IU/L (14-36); BUN Creatinine Ratio 14.9 (6-22); Blood Urea Nitrogen 10 mg/dL (7-17); Estimated Glomerular Filt Rate > 60.0 mL/min (>60); Uric Acid 5.4 mg/dL (2.5-6.2)
--- NOTE | 2020-03-05 13:17 | PM.OBTRLD ---
Visit Information Visit Information Date of evaluation: 03/05/20 Primary OB Provider: Mily Monsivais Reason for Evaluation: Yes non-stress test Comments/Additional reasons for admission: Scheduled NST for preeclampsia without severe features at 36 weeks, presenting for routine testing. Vital Signs Vital Signs: 140/90, HR 72 PFSH Medical History Pneumonia (Acute) Surgical History Anesthesia (Resolved) Hx of tonsillectomy (Acute) [place] teeth extracted (Acute) Family History Grandmother Breast cancer Leukemia Depression Diabetes mellitus Social History marital status: household members: spouse pets and animals: Yes (dogs x 2) education level: college occupational status: employed current occupational exposures/hazards: No special [place] needs: No travel history: recent Smoking Status: Never smoker second hand exposure: No alcohol intake: former substance use type: does not use during the past year weight has: remained stable Type(s) of exercise: walking and other Review of Systems Constitutional Constitutional: Reports system reviewed and no additional complaints, except as documented Objective Labs Result Diagrams: 03/05/20 09:39 03/05/20 09:39 Labs: Laboratory Results - last 24 hr 03/05/20 03/05/20 09:39 09:39 WBC 9.4 RBC 4.10 Hgb 11.9 L Hct 34.4 L MCV 84.0 MCH 29.1 MCHC 34.6 RDW 13.3 Plt Count 244 Neut % (Auto) 75.9 H Lymph % (Auto) 15.8 L [place] % (Auto) 6.4 Eos % (Auto) 1.6 L Baso % (Auto) 0.3 Neut # (Auto) 7100 H Lymph # (Auto) 1500 [place] # (Auto) 600 Eos # (Auto) 200 Baso # (Auto) 0 BUN 10 Creatinine 0.67 Estimated GFR > 60.0 BUN/Creatinine Ratio 14.9 Uric Acid 5.4 AST 20 Evaluation Evaluation Baseline heart rate: 130 Variability: Moderate (11-25) monitor accelerations: Present monitor decelerations: Absent Category of Tracing: I Laboratory results: Laboratory Tests 03/05/20 03/05/20 09:39 09:39 WBC 9.4 RBC 4.10 Hgb 11.9 L Hct 34.4 L MCV 84.0 MCH 29.1 MCHC 34.6 RDW 13.3 Plt Count 244 Neut % (Auto) 75.9 H Lymph % (Auto) 15.8 L [place] % (Auto) 6.4 Eos % (Auto) 1.6 L Baso % (Auto) 0.3 Neut # (Auto) 7100 H Lymph # (Auto) 1500 [place] # (Auto) 600 Eos # (Auto) 200 Baso # (Auto) 0 BUN 10 Creatinine 0.67 Estimated GFR > 60.0 BUN/Creatinine Ratio 14.9 Uric Acid 5.4 AST 20 Diagnosis, Plan/Disposition Plan/Disposition Plan: Reassuring testing, for discharge with scheduled follow up. OB Disposition: home
== END 2020-03-05 09:45 | disposition home or self-care (01) ==
LOC: LABOR 09:50 → OB 03-08 09:33
PROVIDERS: Referring Provider Obstetrics & Gynecology; Visit Provider Obstetrics & Gynecology
DX: O14.03 Mild to moderate pre-eclampsia, third trimester (principal); Z3A.36 36 weeks gestation of pregnancy
CPT/HCPCS: 36415; 59025; 84450; 84550; 85025; G0378; G0379

== ENCOUNTER → 2020-03-08 08:54 | Outpatient (CLI) | payer OTHER, SELFPAY ==
[2020-03-08 13:34] LABS: COVID19 -Nasal RAPID Negative (Negative)
== END ==
PROVIDERS: Visit Provider Registered Nurse
DX: Z01.812 Encounter for preprocedural laboratory examination (principal)
CPT/HCPCS: 87635

== ENCOUNTER 2020-03-09 09:16 | Outpatient (CLI) | payer OTHER, SELFPAY | END 2020-03-09 09:40 | disposition home or self-care (01) | LOC: OB 03-11 13:11 | PROVIDERS: Referring Provider Obstetrics & Gynecology; Visit Provider Obstetrics & Gynecology | DX: O13.3 Gestational [pregnancy-induced] hypertension without significant proteinuria, third trimester (principal); Z3A.37 37 weeks gestation of pregnancy | CPT/HCPCS: 59025; G0378; G0379 ==

== ENCOUNTER 2020-03-10 07:08 | Inpatient (IN) | payer OTHER, SELFPAY ==
--- NOTE | 2020-03-10 08:00 | PM.OBHP.1 ---
OB HPI Date/Time Date of admission: 03/10/20 Date Patient Seen: 03/10/20 Time Patient Seen: 07:45 History of Present Condition Chief complaint: [id number] : 2 Para: 0 Estimated Date of Delivery: 03/28/20 Estimated Gestational Age (weeks): 37 Narrative: Dagmar Mcelroy is a 25 year old @37+3 with a history of preeclampsia without severe features and breech presentation as of 03/05 now converted to vertex, admitted for induction of labor. The patient reports feeling well with mildly increased swelling but no HERNANDEZ, visual changes, SOB, chest pain, contractions, LOF, VB, or decreased movement. Her has been complicated by diagnosis of preeclampsia with elevated BPs at 28 weeks and proteinuria at 30 weeks gestation, closely followed by [facility] and ourselves with twice weekly testing and q2 wk growth ultrasounds. Patient has not required antihypertensive medications, and has had reassuring growth and testing throughout. Her has been otherwise uncomplicated, and her section supervisor history is significant for an early SAB. She has no other contributory medical, surgical, or family history. Indications Indication for induction OB: medical complication (preeclampsia) History of Present care: good care Dating criteria: LMP confirmed by 1st trimester US Ultrasounds: normal 1st trimester US and normal mid trimester US Obstetrical complications: preeclampsia Preadmission Labs Blood type: B (+) positive -: Antibody screen: negative, GBS status: negative, HBsAG: negative, HIV: negative and RPR/VDLR: negative -: Chlamydia screen: not detected and Gonorrhea screen: not detected -: Rubella: immune and Varicella: immune PAP: Normal 1 hr GTT: 74 Narrative: Declined genetic screening Prior (ies) History: 03/2014: 4 week SAB, medically managed. Evaluation Evaluation Baseline heart rate: 125 Variability: Moderate (11-25) monitor accelerations: Present monitor decelerations: Absent Uterine Contraction Intensity: Mild Category of Tracing: I Cervical dilation (cm): 0 Cervical effacement (%): 0 station: -4 Comments: TAUS performed. Fetus in breech, OP presentation. [facility] Medical History Pneumonia (Acute) Surgical History Anesthesia (Resolved) Hx of tonsillectomy (Acute) [place] teeth extracted (Acute) Family History Grandmother Breast cancer Leukemia Depression Diabetes mellitus Social History marital status: household members: spouse pets and animals: Yes (dogs x 2) education level: college occupational status: employed current occupational exposures/hazards: No special [place] needs: No travel history: recent Smoking Status: Never smoker second hand exposure: No alcohol intake: former substance use type: does not use during the past year weight has: remained stable Type(s) of exercise: walking and other Meds Home Medications and Allergies Home Medications Medication Instructions Recorded Confirmed Type prenat.vits,jany,xlf-[id number] 1 tab PO DAILY 09/08/19 02/20/20 History diphenhydramine HCl 25 mg tablet 25 mg PO BEDTIME PRN #14 tab 10/31/19 02/20/20 Rx metoclopramide HCl 5 mg tablet 5 mg PO .HS PRN #14 tab 10/31/19 02/20/20 Rx labetalol 100 mg tablet 100 mg PO BID #120 tab 02/20/20 02/20/20 Rx Allergies Allergy/AdvReac Type Severity Reaction Status Date / Time Penicillins Allergy Mild Hives Verified 02/20/20 08:29 Review of Systems Constitutional Constitutional: Reports system reviewed and no additional complaints, except as documented Cardiovascular Cardiovascular: Reports system reviewed; no additional complaints, except as documented Respiratory Respiratory: Reports system reviewed and no additional complaints, except as documented Gastrointestinal Gastrointestinal: Reports system reviewed and no additional complaints, except as documented Genitourinary Genitourinary: Reports system reviewed and no additional complaints, except as documented Musculoskeletal Musculoskeletal: Reports system reviewed; no additional complaints, except as documented Neurologic Neurologic: Reports system reviewed and no additional complaints, except as documented Hematologic/Lymphatic Hematologic/Lymphatic: Reports system reviewed and no additional complaints, except as documented Exam Vital Signs (past 8 hours): 148/101, HR 105 Const General: cooperative, healthy appearing and comfortable Other: trace UE and facial swelling Resp Effort & Inspection: normal respiratory effort Auscultation: clear to auscultation bilaterally Cardio Rate: regular rate Rhythm: regular rhythm GI Palpation: soft and No tender External Female Exam: external appearance normal Extrem Right lower extremity: edema Details: 2+ Left lower extremity: edema Details: 2+ Assessment and Plan Assessment and Plan Assessment and Plan narrative: This patient is a 25yo @37+3 with preeclampsia without severe features, presenting for scheduled section due to breech presentation after declining ECV. On preoperative position check, the patient was found to have spontaneously converted to vertex presentation. Maternal and status are reassuring, and I discussed with the patient that guidelines for preeclampsia without severe features and gestational hypertension are for delivery after 37 weeks, but that she has no medical indication for a section. We discussed the induction process, that she has an unfavorable cervix, and that she will require cervical ripening. We discussed the risks and benefits of induction including potentially avoiding section and associated risks, potential for section in labor, and potential for worsening preeclampsia. All questions were answered, and the patient and her partner vocalized understanding. - CBC, T&S, PEC panel ordered - Patient for vaginal cytotec, 25 mcg q4 hrs - Discussed goode balloon later in induction - close monitoring of vital signs - continuous EFM, toco - clear liquid diet given variation of presentation, frequent US
[2020-03-10] MEDS: miSOPROStoL 25 MCG TABLET VAG ×2 (09:00→13:09)
[2020-03-10 09:13] VITALS: BP 136/82
[2020-03-10 10:11] LABS: Add Manual Diff / Slide Review NO; Basophils Absolute Auto 0 /uL (0-100); Basophils Percent Auto 0.3 % (0-2); Eosinophils Absolute Auto 100 /uL (0-450); Eosinophils Percent Auto 0.8 % (2-4); Hematocrit 35.7 % (36-46); Hemoglobin 12.1 g/dL (12.0-16.0); Lymphocytes Absolute Auto 1700 /uL (1100-4500); Lymphocytes Percent Auto 16.7 % (25-40); Mean Corpuscular HGB Conc 33.8 % (30-36); Mean Corpuscular Hemoglobin 28.6 PG (26-34); Mean Corpuscular Volume 84.4 fL (80-100); Monocytes Absolute Auto 600 /uL (0-900); Monocytes Percent Auto 5.9 % (3-14); Neutrophils Absolute Auto 7800 /uL (1500-7000); Neutrophils Percent Auto 76.3 % (50-75); Platelet Count 277 X10^3/uL (150-400); Red Blood Cell Count 4.22 X10^6/uL (4.0-5.2); Red Cell Distribution Width 13.6 % (11.6-14.8); White Blood Cell Count 10.2 X10^3/uL (4.5-11.0)
[2020-03-10 10:16] LABS: Aspartate Aminotransferase 47 IU/L (14-36); BUN Creatinine Ratio 12.1 (6-22); Blood Urea Nitrogen 8 mg/dL (7-17); Estimated Glomerular Filt Rate > 60.0 mL/min (>60); Uric Acid 5.9 mg/dL (2.5-6.2)
--- NOTE | 2020-03-10 17:32 | PM.OBPNLAB ---
Date/Time Date Patient Seen: 03/10/20 Time Patient Seen: 17:32 Pain Control Pain control: tolerating well Pelvic Exam Dilation (cm): 0 Effacement (%): 0 station: -3 Comments: presentation is vertex by bedside TAUS. vertex now palpable on SVE. Contractions Contraction frequency (min): 3 Contraction duration (min): 1 Contraction pattern: Regular Contraction intensity: Mild Status status: Category l Monitor Accelerations: Present Monitor Decelerations: Absent Monitor Variability: Moderate Assessment and Plan Assessment: induction ongoing Plan: continuous present management Comments: This patient presented this AM for scheduled CS for preeclampsia without severe features in the setting of breech presentation, and was found to have spontaneously converted to vertex since her last evaluation. Preeclampsia labs are stable though with a slightly increased AST, and she opted for induction of labor after discussion of risks and benefits. Bedside ultrasound has confirmed cephalic presentation throughout the day, and she has received 2x 25mcg of cytotec. Patient now xiomara q2, will allow PO hydration and clear fluids and reassess for third dose of cytotec in the setting of closed cervix. Patient otherwise denies HERNANDEZ, visual changes, SOB, chest pain, or any other complaints, has no severe features though appears more swollen. Will continue to closely monitor. - Strict I&O - close monitoring VS - cEFM, toco
[2020-03-10 18:07] LABS: Add Manual Diff / Slide Review NO; Basophils Absolute Auto 0 /uL (0-100); Basophils Percent Auto 0.2 % (0-2); Eosinophils Absolute Auto 100 /uL (0-450); Eosinophils Percent Auto 0.7 % (2-4); Hemoglobin 12.4 g/dL (12.0-16.0); Lymphocytes Absolute Auto 1100 /uL (1100-4500); Lymphocytes Percent Auto 12.1 % (25-40); Mean Corpuscular HGB Conc 34.5 % (30-36); Mean Corpuscular Hemoglobin 28.8 PG (26-34); Mean Corpuscular Volume 83.6 fL (80-100); Monocytes Absolute Auto 500 /uL (0-900); Monocytes Percent Auto 5.6 % (3-14); Neutrophils Absolute Auto 7700 /uL (1500-7000); Neutrophils Percent Auto 81.4 % (50-75); Platelet Count 275 X10^3/uL (150-400); Red Blood Cell Count 4.31 X10^6/uL (4.0-5.2); Red Cell Distribution Width 13.5 % (11.6-14.8); White Blood Cell Count 9.4 X10^3/uL (4.5-11.0)
[2020-03-10 18:29] LABS: Aspartate Aminotransferase 24 IU/L (14-36); BUN Creatinine Ratio 10.3 (6-22); Blood Urea Nitrogen 7 mg/dL (7-17); Estimated Glomerular Filt Rate > 60.0 mL/min (>60); Uric Acid 6.3 mg/dL (2.5-6.2)
[2020-03-10] MEDS: DINOPROSTONE VAG (CERVIDIL) 10 MG VAG (19:06)
[2020-03-10] MEDS: diphenhydrAMINE 50 MG/ML VIAL 25 MG IV (19:46)
[2020-03-10] MEDS: LACTATED RINGERS 1,000 ML 100 ML IV (19:46)
[2020-03-11 06:19] LABS: Aspartate Aminotransferase 22 IU/L (14-36); BUN Creatinine Ratio 11.9 (6-22); Blood Urea Nitrogen 8 mg/dL (7-17); Estimated Glomerular Filt Rate > 60.0 mL/min (>60); Uric Acid 6.2 mg/dL (2.5-6.2)
[2020-03-11 06:21] LABS: Add Manual Diff / Slide Review NO; Basophils Absolute Auto 0 /uL (0-100); Basophils Percent Auto 0.2 % (0-2); Eosinophils Absolute Auto 100 /uL (0-450); Eosinophils Percent Auto 0.9 % (2-4); Hematocrit 34.2 % (36-46); Hemoglobin 11.8 g/dL (12.0-16.0); Lymphocytes Absolute Auto 1500 /uL (1100-4500); Lymphocytes Percent Auto 17.4 % (25-40); Mean Corpuscular HGB Conc 34.6 % (30-36); Mean Corpuscular Hemoglobin 28.9 PG (26-34); Mean Corpuscular Volume 83.4 fL (80-100); Monocytes Absolute Auto 600 /uL (0-900); Neutrophils Absolute Auto 6400 /uL (1500-7000); Neutrophils Percent Auto 74.5 % (50-75); Platelet Count 238 X10^3/uL (150-400); Red Cell Distribution Width 13.7 % (11.6-14.8); White Blood Cell Count 8.6 X10^3/uL (4.5-11.0)
--- NOTE | 2020-03-11 09:13 | PM.OBPNLAB ---
Date/Time Date Patient Seen: 03/11/20 Time Patient Seen: 09:13 Pain Control Pain control: tolerating well Pelvic Exam Dilation (cm): 0 Effacement (%): 0 station: -3 Contractions Contraction frequency (min): 3 Contraction pattern: Regular Contraction intensity: Mild Status status: Category l Heart Rate Baseline: 125 Monitor Accelerations: Present Monitor Decelerations: Absent Monitor Variability: Moderate Assessment and Plan Assessment: induction ongoing Plan: continuous present management Comments: This patient is admitted for delivery for preeclampsia without severe features, planned for section for breech but found to have spontaneously flipped to vertex. She is s/p 2 doses of vaginal cytotec and 12 hours of cervidil, and has a closed, extremely soft cervix with no palpable applied presenting part. The patient is confirmed to be vertex on ultrasound at the time of this exam. The patient had a large breakfast at 8 AM, and has reassuring status. Maternal status is stable, though she had non-sustained severe range blood pressures overnight. She denies PIH symptoms, has stable labs this AM, and her most recent BP was 131/83. Though her cervix is still unfavorable, given her extensive cervical ripening, plan today is for pitocin to attempt to facilitate application of the vertex to the cervix. We discussed reevaluation in the early afternoon if no other change in or maternal status, with discussion of ongoing plan at that time.
[2020-03-11] MEDS: OXYTOCIN PREMIX 30 UNIT/500 ML PLAST..BAG IV (09:59)
[2020-03-11] MEDS: LACTATED RINGERS 1,000 ML 1000 ML IV (12:00)
--- NOTE | 2020-03-11 14:17 | PM.OBPNLAB ---
Date/Time Date Patient Seen: 03/11/20 Time Patient Seen: 14:17 Pain Control Pain control: tolerating well Pelvic Exam Dilation (cm): 0 Effacement (%): 0 station: -4 Amniotic membrane status: Intact Contractions Pitocin rate (mU/min): 15 Contraction frequency (min): 2 Contraction duration (min): 1 Contraction pattern: Regular Contraction intensity: Moderate Status status: Category l Heart Rate Baseline: 125 Monitor Accelerations: Present Monitor Decelerations: Absent Monitor Variability: Moderate Assessment and Plan Assessment: other Plan: Comments: This patient is admitted for delivery for preeclampsia without severe features, initially planned for section for breech but found to have spontaneously converted to vertex on the morning of admission. She has undergone 24 hours of cervical ripening and pitocin since this AM. She has made no appreciable change in cervical exam and continues no palpable presenting part, despite frequent bedside ultrasounds confirming vertex presentation and successfully achieving q2 contractions for several episodes, sometimes painful. We discussed the option of continuing pitocin, the risk of section later in labor, and concern for structural or anatomical reason for lack of vertex engagement. We discussed the risks of section including infection, bleeding, and damage to bowel and bladder, along with risks in later pregnancies. The patient and her vocalized understanding of the above, and all questions were answered. We will proceed with primary section for failed induction of labor in the setting of preeclampsia without severe features at term. - Given reaction to PCN is hives, preop antibiotics of gentamicin 5mg/kg and 900mg clindamycin ordered. - NPO, pitocin stopped, usual preoperative protocol underway
--- NOTE | 2020-03-11 14:52 | SUR.OPER ---
Supine on padded OR bed, head on pillow, arms secured on padded arm boards at <90 degrees abduction, legs uncrossed, safety belt at thigh, tape over blanket over lower legs.
[2020-03-11] MEDS: CLINDAMYCIN 900 MG/50 ML PIGGYBACK 50 MG IV (15:05)
[2020-03-11] MEDS: GENTAMICIN 360 MG in SODIUM CHLORIDE 0.9% 100 ML 109 ML IV (15:23)
[2020-03-11] MEDS: ACETAMINOPHEN IV 1,000 MG/100 ML VIAL 400 MG IV (15:30)
--- NOTE | 2020-03-11 15:44 | SUR.OPER ---
Viable male delivered at 15:41. Cord blood x2 and placenta sent with L&D RN.
[2020-03-11 16:35] VITALS: BP 125/66; PULSE 73; RESP 12; TEMP 36.1; O2SAT 98
--- NOTE | 2020-03-11 16:38 | P.OP_ITS ---
Operative Date/Time/Diagnoses Date of procedure: 03/11/20 Time of procedure: 15:30 Pre-op diagnosis: preeclampsia without severe features at term, failed induction of labor Post-op diagnosis: same Procedure & Clinicians Procedure: primary section Same procedure as scheduled: Yes Indications: preeclampsia without severe features, failed induction of labor Surgeon: Mily Monsivais Climate Change Risk Assessor: Cirilo Hilliard Anesthesia Type: Spinal Operative Notes Findings: Male infant in cephalic presentation, apgars 7+9, weight 5#11oz. Loose nuchal cord x1. Normal uterus, tubes, and ovaries. Quite prominent sacral promonotory. Closure Type: primary Specimen(s): none sent Estimated Blood Loss (mL): 700 Blood products transfused: none Procedure in detail: EBL: 700ccs Fluids:1500 ccs LR UOP: 100ccs Findings: Male infant in cephalic presentation, Apgars , weight 5#11, normal uterus, tubes, ovaries. Procedures: The patient was taken to the operating room where spinal anesthesia was placed. She was prepped and draped in the normal sterile fashion in the dorsal supine position with a leftward tilt. A Pfannenstiel skin incision was made with a scalpel and carried through to the underlying layer of fascia. The fascia was incised in the midline and the incision extended laterally with Granados scissors. The inferior aspect of this incision was grasped with Amada clamps, elevated. and the underlying rectus muscles dissected off bluntly. Attention was then turned to the superior aspect of this incision which, in a similar fashion, was grasped, tented up with the Amada clamps, and the rectus muscles dissected off bluntly. The rectus muscles were then in the midline, and the peritoneum identified, tented up, and entered sharply with Metzenbaum scissors. The peritoneal incision was extended superiorly and inferiorly with good visualization of the bladder. The bladder blade was inserted and the vesico uterine peritoneum identified, grasped with pickups, and entered sharply with the Metzenbaum scissors. This incision was extended laterally, and the bladder flap created digitally. The bladder blade was then reinserted and the lower uterine segment incised in transverse fashion with the scalpel. The uterine incision was bluntly extended laterally. The bladder blade was removed, and the 's head delivered atraumatically. A loose nuchal cord was reduced with ease. After 45 seconds of delayed cord clamping, the cord was clamped and cut. The nose and mouth were suctioned as needed with a bulb synringe, and the was handed off to awaiting pediatricians. The placenta was then removed spontaneously, and the uterus was exteriorized and cleared of all clots and debris. The uterine incision was repaired with 1-0 chromic in a running, locked fashion a 2nd layer of the same suture was used to obtain excellent hemostasis. The uterus was returned to the abdomen, and the gutters were cleared of all clots and debris. The peritoneum was closed with 3-0 Vicryl, and the fascia reapproximated with 0 Vicryl in a running fashion. The subcutaneous layer was placed with 3 0 Vicryl in an interrupted fashion and the skin was closed with 4-0 biosyn in a running fashion. The patient tolerated the procedure well. sponge lap and needle counts were correct x2. 5mg/kg of gentamicin and 900mg of clindamycin were given at commencement of the case. The patient was taken to the recovery room in stable condition. Complications: none Post-operative Condition: stable Disposition: PACU Plan for aftercare: Routine post section care, with close monitoring of vitals.
[2020-03-11 16:40] VITALS: BP 117/64; PULSE 75; RESP 11; O2SAT 98
[2020-03-11] MEDS: LACTATED RINGERS 1,000 ML 42 ML IV (16:40)
[2020-03-11 16:45] VITALS: BP 115/70; PULSE 76; RESP 10; O2SAT 98
[2020-03-11 16:50] VITALS: BP 114/69; PULSE 74; RESP 10; O2SAT 98
[2020-03-11 16:56] VITALS: BP 113/69; PULSE 71; RESP 12; TEMP 36.4; O2SAT 99
[2020-03-11] MEDS: ONDANSETRON 4 MG/2 ML INJ IV (19:51)
[2020-03-11] MEDS: METOCLOPRAMIDE 10 MG/2 ML INJ IV (19:51)
[2020-03-11] MEDS: KETOROLAC 30 MG/ML VIAL IV (22:23)
[2020-03-12] MEDS: KETOROLAC 30 MG/ML VIAL IV ×2 (04:18→10:53)
[2020-03-12 05:36] LABS: Add Manual Diff / Slide Review NO; Basophils Absolute Auto 0 /uL (0-100); Basophils Percent Auto 0.3 % (0-2); Eosinophils Absolute Auto 100 /uL (0-450); Eosinophils Percent Auto 0.8 % (2-4); Hematocrit 28.9 % (36-46); Hemoglobin 9.9 g/dL (12.0-16.0); Lymphocytes Absolute Auto 1300 /uL (1100-4500); Lymphocytes Percent Auto 14.1 % (25-40); Mean Corpuscular HGB Conc 34.3 % (30-36); Mean Corpuscular Hemoglobin 28.5 PG (26-34); Mean Corpuscular Volume 83.2 fL (80-100); Monocytes Absolute Auto 700 /uL (0-900); Monocytes Percent Auto 7.9 % (3-14); Neutrophils Absolute Auto 6800 /uL (1500-7000); Neutrophils Percent Auto 76.9 % (50-75); Platelet Count 222 X10^3/uL (150-400); Red Blood Cell Count 3.47 X10^6/uL (4.0-5.2); Red Cell Distribution Width 13.6 % (11.6-14.8); White Blood Cell Count 8.9 X10^3/uL (4.5-11.0)
[2020-03-12 05:47] LABS: Aspartate Aminotransferase 20 IU/L (14-36); BUN Creatinine Ratio 12.5 (6-22); Blood Urea Nitrogen 11 mg/dL (7-17); Estimated Glomerular Filt Rate > 60.0 mL/min (>60); Uric Acid 6.8 mg/dL (2.5-6.2)
[2020-03-12 07:00] VITALS: BP 152/95; PULSE 70; RESP 16; TEMP 36.8
[2020-03-12] MEDS: OXYCODONE IR 5 MG TABLET PO ×4 (07:58→22:26)
[2020-03-12] MEDS: DOCUSATE 250 MG CAPSULE PO (07:59)
[2020-03-12] MEDS: LACTATED RINGERS 500 ML 1000 ML IV (09:44)
--- NOTE | 2020-03-12 10:47 | PM.OBPN.1 ---
Subjective - OB Subjective Patient comments: no complaints, pain well controlled and tolerating diet baby status: doing well feeding status: exclusively breast feeding Narrative: This patient is a 25yo P1 POD#1 s/p pCS for preeclampsia without severe features in the setting of failed IOL. The patient reports feeling well this AM, with good pain control, tolerating PO, no PIH symptoms and resolved nausea and vomiting. Goode catheter remains in place, and patient has not attempted ambulation. Date Patient Seen: 03/12/20 Time Patient Seen: 08:45 Exam Vital Signs (past 8 hours): 120s-140s/80s-90s, HR 60s-80s Oxygen Delivery Method Room Air Const General: cooperative, healthy appearing and comfortable Resp Effort & Inspection: normal respiratory effort Auscultation: clear to auscultation bilaterally Cardio Rate: regular rate Rhythm: regular rhythm GI Inspection: incision (c/d/i, covered by bandage) Palpation: soft and No tender Other: fundus firm, well below u, no distension Skin General: no rashes or lesions noted Objective Labs Result Diagrams: 03/12/20 05:25 03/12/20 05:25 Labs: Laboratory Results - last 24 hr 03/12/20 03/12/20 05:25 05:25 WBC 8.9 RBC 3.47 L Hgb 9.9 L Hct 28.9 L MCV 83.2 MCH 28.5 MCHC 34.3 RDW 13.6 Plt Count 222 Neut % (Auto) 76.9 H Lymph % (Auto) 14.1 L [place] % (Auto) 7.9 Eos % (Auto) 0.8 L Baso % (Auto) 0.3 Neut # (Auto) 6800 Lymph # (Auto) 1300 [place] # (Auto) 700 Eos # (Auto) 100 Baso # (Auto) 0 BUN 11 Creatinine 0.88 Estimated GFR > 60.0 BUN/Creatinine Ratio 12.5 Uric Acid 6.8 H AST 20 Assessment & Plan Plan day: 1 plan OB: routine postop care Comments: This patient is meeting postoperative goals appropriately, with an appropriate hgb drop for a CS, otherwise normal PIH labs, and blood pressures c/w her baseline. She should have her goode catheter out this AM and ambulate, and use SCDs while in bed. - tylenol and toradol scheduled each q3, with opioids for breakthrough - AMbulation encouraged - close monitoring of VS - VT this AM Time Spent With Patient Time: Total time spent is greater than 50% in coordination of care (as documented) at patient's floor/unit and/or counseling patient: Time with patient: 15-24 minutes
[2020-03-12] MEDS: IBUPROFEN 600 MG TABLET PO ×2 (17:25→23:29)
[2020-03-12] MEDS: NIFEdipine 10 MG CAPSULE PO (17:27)
[2020-03-12] MEDS: ACETAMINOPHEN 325 MG TABLET 650 MG PO (18:33)
[2020-03-13] MEDS: ACETAMINOPHEN 325 MG TABLET 650 MG PO ×3 (00:24→12:23)
[2020-03-13] MEDS: OXYCODONE IR 5 MG TABLET PO ×3 (02:18→10:47)
[2020-03-13] MEDS: IBUPROFEN 600 MG TABLET PO ×2 (05:30→11:14)
[2020-03-13] MEDS: NIFEdipine 30 MG TAB ER PO (10:46)
[2020-03-13] MEDS: DOCUSATE 250 MG CAPSULE PO (10:46)
--- NOTE | 2020-03-13 10:53 | PM.OBPN.1 ---
Subjective - OB Subjective Patient comments: no complaints and pain well controlled [place] baby status: doing well and nursing well feeding status: exclusively breast feeding Narrative: Feels well. Does feel increased incisional discomfort today, but relieved with the oxycodone. Voiding without difficulty. Lochia light. + flatus, no BM yet. Denies HERNANDEZ, nausea, upper abdominal pain or fever.. Date Patient Seen: 03/13/20 Time Patient Seen: 10:30 Exam Vital Signs (past 8 hours): Afebrile. BP 152/95. BP overnight 146-148/90-97 Oxygen Delivery Method Room Air Narrative Exam Narrative: General: Well-appearing female Abdomen: Soft, nontender, nondistended. Dressing intact, dry Fundus U-1, firm, nontender. Extremities: 1+ pedal edema, decreasing Objective Labs Result Diagrams: 03/12/20 05:25 03/12/20 05:25 Assessment & Plan Assessment and Plan (1) S/P primary low transverse : Problem details: Postop day 2, doing well. If BP controlled after nifedipine this a.m., then will discharge this afternoon with f/u in 2 days. Patient does desire discharge home. Status: Acute Current Visit: Yes (2) Pre-eclampsia: Problem details: Needed to start Nifedipine yesterday afternoon for BP 145/101 as she started ambulating more. She tolerated the Nifedipine 10 mg without problems and good results yesterday. Will start Nifedipine 30 mg XL daily. Status: Acute Current Visit: No Time Spent With Patient Time: Total time spent is greater than 50% in coordination of care (as documented) at patient's floor/unit and/or counseling patient: Discharge instructions,precautions and follow-up reviewed Time with patient: 15-24 minutes
--- NOTE | 2020-03-13 11:49 | PM.DS.1 ---
History of Present Illness History of Present Illness Date Patient Seen: 03/13/20 Time Patient Seen: 11:56 Chief complaint: Changed to Induction per Brad in Narrative: Dagmar Mcelroy is a 25 year old who was admitted at @37+3 weeks for delivery for preeclampsia without severe features. Her has been complicated by diagnosis of preeclampsia with elevated BPs at 28 weeks and proteinuria at 30 weeks gestation, closely followed by [facility] and ourselves with twice weekly testing and q2 wk growth ultrasounds. Patient had not required antihypertensive medications, and had reassuring growth and testing throughout. Her has been otherwise uncomplicated. She had had persistent breech presentation and had been admitted for a primary section. However on day of presentation the baby had spontaneously converted and was now vertex. She was thus admitted for induction of labor. Discharge Providers Provider Date of admission: 03/10/20 07:08 Discharge Date: 03/13/20 Consults: 03/11/20 19:45 Consult to Acid Tender Routine Comment: Discharge provider: Staci Cruz MD Summary Hospital Course Discharge Diagnosis: Thirty-seven week , delivered Preeclampsia without severe features Failed induction of labor, status post primary lower transverse section Hospital Course: Patient presented scheduled for primary section for breech, for delivery at 37 weeks due to the preeclampsia. When she was now noted to be vertex, she was admitted for induction of labor. Vertex was never engaged. She received 24 hours of cervical ripening followed by a half day trial of Pitocin. Vertex was confirmed on repeat ultrasounds, but was never palpable, not engaged and after discussion with the patient on option of continuing attempted abduction versus proceeding with , decision was made to proceed with a primary section for delivery. On admission patient's labs showed a mildly elevated AST, otherwise normal. She did have occasional severe range BP, but nonsustained. She received 1 dose of labetalol. She underwent primary lower transverse section without complications. She had a normal postoperative course. She had normal return of bowel function. , she did have elevated BPs on day 1, up to 145/101 which responded to nifedipine. She did feel well and preeclamptic labs were normal, AST had returned to normal. BP improved with nifedipine 1 dose and she was now started on nifedipine 30 mg XL for discharge home. She had delivered a viable male weighing 5 lb 11 oz with Apgars of 7 and 9. Baby has done well and is ready for discharge home as well. She is breast-feeding without problems. Status at Discharge Cognitive/behavioral status at discharge: oriented Functional status at discharge: independent ambulation Overall status at discharge: patient is progressing back to baseline Time Spent with Patient Time spent: Less than 30 minutes Exam Vital Signs (past 8 hours): Afebrlie BP 145-146/95-101, 1 hour s/p Nifedipine XL this am BP 141/84. Pulse 68, RR 16 Oxygen Delivery Method Room Air Narrative Exam Narrative: General: Well-appearing female Abdomen: Soft, nontender, nondistended. Dressing is dry, intact Fundus U-1, firm, nontender Extremities: 1+ pedal edema, no calf tenderness Objective Labs Result Diagrams: 03/12/20 05:25 03/12/20 05:25 Discharge Plan Discharge Plan Patient Disposition: Home Discharge comment: Schedule an appointment with Dr. Monsivais on 03/15/2020 for dressing removal and BP check. Discharge orders & Medications Prescriptions: New acetaminophen 325 mg Tablet 650 mg PO Q6HR PRN (Reason: Fever/Mild Pain (1-3)) Qty: 0 RF: 0 ibuprofen 600 mg Tablet 600 mg PO Q6HR PRN (Reason: Fever/Mild Pain (1-3)) Qty: 90 RF: 0 docusate sodium 250 mg Capsule 250 mg PO DAILY Qty: 0 RF: 0 oxycodone 5 mg Tablet See Rx Instructions .ROUTE .COMPLEX PRN (Reason: Pain, Moderate (4-6)) Qty: 14 RF: 0 [id number] Cream 1 applic topical PRN PRN (Reason: ) Qty: 0 RF: 0 nifedipine 30 mg tablet extended release 24hr 30 mg PO DAILY Qty: 40 RF: 0 Continued prenat.vits,jany,ted-cozv-seroy Tablet 1 tab PO DAILY RF: 0 Discontinued metoclopramide HCl [Reglan] 5 mg tablet 5 mg PO .HS PRN (Reason: nausea and vomiting) Qty: 14 RF: 0 diphenhydramine HCl [Benadryl Allergy] 25 mg tablet 25 mg PO BEDTIME PRN (Reason: sleep) Qty: 14 RF: 0 labetalol 100 mg tablet 100 mg PO BID Qty: 120 RF: 2 Discharge Health Status Multidrug resistant organism: No MDRO Diet/Activity/Treatments Diet: Regular Activity: May gradually increase walking. No strenuous exercise for 4 weeks. Nothing in the vagina including no tampons for 6 weeks. No heavy lifting for 6 weeks. Skin/Wound/Dressing Care Dressing: Will be removed in the office a.m. next appointment. May shower and let the soapy water run over the dressing. Call if you developed persistent redness around the dressing, or significant increased and pain from your incision. Call for heavy vaginal bleeding, fever or persistent nausea and vomiting. Visit Report/Discharge Packet Instructions: DI for Visit Report Forms: Patient Portal/API, Stroke Signs & Symptoms
--- NOTE | 2020-03-17 13:52 | PM.OBDS.1 ---
Discharge Providers Provider Date of admission: 03/10/20 07:08 Consults: 03/11/20 19:45 Consult to Speech And Language Specialist Routine Comment: Discharge provider: Mily Monsivais MD Summary Discharge Diagnosis (1) S/P primary low transverse : Status: Acute Problem Details: Postop day 2, doing well. If BP controlled after nifedipine this a.m., then will discharge this afternoon with f/u in 2 days. Patient does desire discharge home. (2) Pre-eclampsia: Status: Acute Problem Details: Needed to start Nifedipine yesterday afternoon for BP 145/101 as she started ambulating more. She tolerated the Nifedipine 10 mg without problems and good results yesterday. Will start Nifedipine 30 mg XL daily. Time Spent with Patient Time attestation: Total time spent providing and/or coordinating discharge services: Objective Labs Result Diagrams: 03/12/20 05:25 03/12/20 05:25 Exam Vital Signs (past 8 hours): Oxygen Delivery Method Room Air Discharge Plan Discharge Plan Patient Disposition: Home Discharge comment: Schedule an appointment with Dr. Monsivais on 03/15/2020 for dressing removal and BP check. Discharge orders & Medications Prescriptions: New acetaminophen 325 mg Tablet 650 mg PO Q6HR PRN (Reason: Fever/Mild Pain (1-3)) Qty: 0 RF: 0 ibuprofen 600 mg Tablet 600 mg PO Q6HR PRN (Reason: Fever/Mild Pain (1-3)) Qty: 90 RF: 0 docusate sodium 250 mg Capsule 250 mg PO DAILY Qty: 0 RF: 0 oxycodone 5 mg Tablet See Rx Instructions .ROUTE .COMPLEX PRN (Reason: Pain, Moderate (4-6)) Qty: 14 RF: 0 [id number] Cream 1 applic topical PRN PRN (Reason: ) Qty: 0 RF: 0 nifedipine 30 mg tablet extended release 24hr 30 mg PO DAILY Qty: 40 RF: 0 Continued prenat.vits,jany,ueg-zrzy-larat Tablet 1 tab PO DAILY RF: 0 Discontinued metoclopramide HCl [Reglan] 5 mg tablet 5 mg PO .HS PRN (Reason: nausea and vomiting) Qty: 14 RF: 0 diphenhydramine HCl [Benadryl Allergy] 25 mg tablet 25 mg PO BEDTIME PRN (Reason: sleep) Qty: 14 RF: 0 labetalol 100 mg tablet 100 mg PO BID Qty: 120 RF: 2 Discharge Health Status Multidrug resistant organism: No MDRO Diet/Activity/Treatments Diet: Regular Activity: May gradually increase walking. No strenuous exercise for 4 weeks. Nothing in the vagina including no tampons for 6 weeks. No heavy lifting for 6 weeks. Skin/Wound/Dressing Care Dressing: Will be removed in the office a.m. next appointment. May shower and let the soapy water run over the dressing. Call if you developed persistent redness around the dressing, or significant increased and pain from your incision. Call for heavy vaginal bleeding, fever or persistent nausea and vomiting. Visit Report/Discharge Packet Instructions: DI for Discharges patient from system. Discharge Date/Time: 03/13/20 12:50
== END 2020-03-13 12:50 | disposition home or self-care (01) | DRG 788 ==
PROVIDERS: Admitting Provider Obstetrics & Gynecology; Referring Provider Obstetrics & Gynecology; Visit Provider Obstetrics & Gynecology
PROC: 10D00Z1 Extraction of Products of Conception, Low, Open Approach (ICD-10-PCS; CPT 59514; principal; 2020-03-11 14:45)
DX: O14.04 Mild to moderate pre-eclampsia, complicating childbirth (principal); Z3A.37 37 weeks gestation of pregnancy; Z37.0 Single live birth; O61.0 Failed medical induction of labor; Z01.812 Encounter for preprocedural laboratory examination
CPT/HCPCS: 36415; 59025; 59050; 59200; 59510; 59514; 76815; 84450; 84550; 85025; 86850; 86900; 86901; 87635; G0378; G0379; J0131; J1200; J1885; J2274; J2405; J2590; J2765

== ENCOUNTER → 2021-05-06 09:30 | Outpatient (CLI) | payer OTHER, SELFPAY ==
[2021-05-06 10:28] LABS: Add Manual Diff / Slide Review NO; Basophils Absolute Auto 0 /uL (0-100); Basophils Percent Auto 0.5 % (0-2); Eosinophils Absolute Auto 100 /uL (0-450); Eosinophils Percent Auto 1.5 % (2-4); Hematocrit 42.1 % (36-46); Hemoglobin 14.3 g/dL (12.0-16.0); Lymphocytes Absolute Auto 1500 /uL (1100-4500); Lymphocytes Percent Auto 18.9 % (25-40); Mean Corpuscular HGB Conc 33.9 % (30-36); Mean Corpuscular Hemoglobin 28.5 PG (26-34); Mean Corpuscular Volume 84.1 fL (80-100); Monocytes Absolute Auto 500 /uL (0-900); Neutrophils Absolute Auto 5900 /uL (1500-7000); Neutrophils Percent Auto 73.1 % (50-75); Platelet Count 296 X10^3/uL (150-400); Red Cell Distribution Width 13.3 % (11.6-14.8); White Blood Cell Count 8.1 X10^3/uL (4.5-11.0)
[2021-05-06 10:56] LABS: Appearance Urine UA CLEAR; Bilirubin Urine UA NEGATIVE (NEGATIVE); Color Urine UA YELLOW; Glucose Urine UA NEGATIVE (Negative); Ketones Urine UA NEGATIVE (NEGATIVE); Leukocyte Esterase Urine UA NEGATIVE (NEGATIVE); Nitrite Urine UA NEGATIVE (Negative); Occult Blood Urine UA NEGATIVE (Negative); Protein Urine UA NEGATIVE (Negative); Specific Gravity Urine UA <=1.005 (1.000-1.035); Urobilinogen Urine UA 0.2 E.U./dL (0.2)
[2021-05-06 10:57] LABS: pH Urine UA 6.5 (4.5-8.0)
[2021-05-06 11:49] LABS: Hepatitis B Surface Antigen NEGATIVE s/c (NEGATIVE); Rubella Antibody IgG 37.9 IU/mL (>15)
[2021-05-06 12:13] LABS: Alanine Aminotransferase 17 IU/L (<35); Albumin Globulin Ratio 1.5 (1.0-2.8); Alkaline Phosphatase 51 U/L (38-126); Aspartate Aminotransferase 23 IU/L (14-36); BUN Creatinine Ratio 15.3 (6-22); Bilirubin Total 0.5 mg/dL (0.2-1.3); Blood Urea Nitrogen 11 mg/dL (7-17); Calcium 9.6 mg/dL (8.4-10.2); Carbon Dioxide 20 mmol/L (22-32); Chloride 107 mmol/L (98-107); Estimated Glomerular Filt Rate > 60.0 mL/min (>60); Globulin 2.6 g/dL (1.7-4.1); Glucose 86 mg/dL (70-100); HEMOLYSIS < 15 (0-50); Lactate Dehydrogenase 392 U/L (313-618); Potassium 4.1 mmol/L (3.4-5.1); Sodium 136 mmol/L (137-145); Total Protein 6.6 g/dL (6.3-8.2); Uric Acid 3.8 mg/dL (2.5-6.2)
[2021-05-06 12:16] LABS: HIV 1 & 2 Ab/Ag 4th Gen Combo NEGATIVE (NEGATIVE); Hep C Virus Ab w/Reflex Quant NEGATIVE s/c (NEGATIVE)
[2021-05-06 13:42] LABS: Urine N gonorrhoeae NOT DETECTED
[2021-05-06 13:48] LABS: Urine Chlamydia NOT DETECTED
[2021-05-07 07:54] LABS: Varicella IgG Antibody 410 index (Immune >165)
[2021-05-07 08:25] LABS: RPR Screen Non Reactive (Non Reactive)
== END ==
PROVIDERS: Referring Provider Obstetrics & Gynecology; Visit Provider Obstetrics & Gynecology
DX: O09.299 Supervision of pregnancy with other poor reproductive or obstetric history, unspecified trimester (principal); Z11.3 Encounter for screening for infections with a predominantly sexual mode of transmission; Z3A.08 8 weeks gestation of pregnancy
CPT/HCPCS: 36415; 80053; 80055; 81003; 83615; 84550; 86787; 86803; 86850; 86900; 86901; 87086; 87389; 87491; 87591

== ENCOUNTER → 2021-05-25 10:50 | Outpatient (CLI) | payer OTHER, SELFPAY ==
[2021-05-25 16:04] LABS: Collection Time Urine 24 Hours; Protein (Total) Urine Random 11 mg/dL (0-12); Total Protein 24 Hour Urine 330 mg/day (42-225); Total Volume Urine 3000 mL
== END ==
PROVIDERS: Referring Provider Obstetrics & Gynecology; Visit Provider Obstetrics & Gynecology
DX: O09.299 Supervision of pregnancy with other poor reproductive or obstetric history, unspecified trimester (principal)
CPT/HCPCS: 84156

== ENCOUNTER → 2021-06-30 10:43 | Outpatient (CLI) | payer OTHER, SELFPAY ==
[2021-07-02 18:24] LABS: AFP, Serum 40.9 ng/mL (.); Estriol, Free 0.95 ng/mL (.); Inhibin A, Dimeric 191.38 pg/mL (.); Inhibin A, MoM 1.42 (.); Maternal Ethnicity Caucasian (.); Maternal Weight 198 lbs (.); Number of Fetuses No (.); OSBR Risk 1 IN 3600 (.); Results Report (.); Test Results *Screen Negative* (.); hCG, Serum 30213 mIU/mL (.)
== END ==
PROVIDERS: Referring Provider Obstetrics & Gynecology; Visit Provider Obstetrics & Gynecology
DX: Z34.82 Encounter for supervision of other normal pregnancy, second trimester (principal); Z3A.16 16 weeks gestation of pregnancy
CPT/HCPCS: 36415; 82105; 82677; 84702; 86336